=== PATIENT | male | born 1940 | race Caucasian/White ===

== ENCOUNTER 2022-12-25 23:19 | Emergency (ER) | payer MEDICARE, OTHER ==
[~2022-12-25] VITALS: Ht 177.8 cm; Wt 70.8 kg
[2022-12-26 00:42] LABS: BASOPHILS % (AUTO) 0.6 % (0.0-2.0); EOSINOPHILS % (AUTO) 3.8 % (0.0-6.0); HEMATOCRIT 46 % (39-51); HEMOGLOBIN 14.6 g/dL (13.5-17.5); LYMPHOCYTES # (AUTO) 2.2 K/uL (0.8-4.8); LYMPHOCYTES % (AUTO) 34.1 % (20.0-44.0); MEAN CORPUSCULAR HGB CONC 32 g/dl (31.0-36.0); MEAN CORPUSCULAR VOLUME 90 fL (80-96); MONOCYTES # (AUTO) 0.4 K/uL (0.1-1.30); MONOCYTES % (AUTO) 5.5 % (2.0-12.0); NEUTROPHILS # (AUTO) 3.6 K/uL (1.8-8.9); PLATELET COUNT (AUTO) 271 K/uL (150-450); RED BLOOD CELL COUNT(AUTO) 5.05 MIL/uL (4.5-6.0); WHITE BLOOD COUNT (AUTO) 6.4 K/uL (4.3-11.0)
--- NOTE | 2022-12-26 01:01 | NUR ---
[facility] CALLED FOR BLS GOING BACK TO [facility]F PER MICHAEL ETA 90 MIN
[2022-12-26 01:06] LABS: ALANINE AMINOTRANSFERASE 8 U/L (12-78); ALBUMIN 3.6 g/dL (3.4-5.0); ALKALINE PHOSPHATASE 68 U/L (46-116); ASPARTATE AMINOTRANSFERASE 14 U/L (15-37); BILIRUBIN,TOTAL 0.2 mg/dL (0.2-1.0); CALCIUM, SERUM 9.4 mg/dL (8.5-10.1); CARBON DIOXIDE 26 mmol/L (21-32); CHLORIDE 103 mmol/L (98-107); CREATININE 1.2 mg/dL (0.6-1.3); GLUCOSE 119 mg/dL (74-106); POTASSIUM 4.2 mmol/L (3.5-5.1); SODIUM SERUM 137 mmol/L (136-145); TOTAL PROTEIN, SERUM 8.1 g/dL (6.4-8.2); UREA NITROGEN, BLOOD 33 mg/dL (7-18)
--- NOTE | 2022-12-26 01:06 | NUR ---
ATTEMPTED TO GIVE REPORT, PICKED UP BUT NO ANSWER.
--- NOTE | 2022-12-26 02:05 | NUR ---
Patient discharged to home in stable condition. Written and verbal after care instructions given. Patient verbalizes understanding of instruction.
[2022-12-26 02:06] VITALS: BP 124/70
[2022-12-26] MEDS ORDERED: NA P133E RC (10:22)
[2022-12-26] MEDS ORDERED: ASCO100058 PO (10:22)
[2022-12-26] MEDS ORDERED: MELA5TAB PO (10:22)
[2022-12-26] MEDS ORDERED: OLAN2.5T3 PO (10:22)
[2022-12-26] MEDS ORDERED: SCOP1PAT11 TD (10:22)
[2022-12-26] MEDS ORDERED: TYL2T PO (10:22)
[2022-12-26] MEDS ORDERED: BISA10SU11 RC (10:22)
[2022-12-26] MEDS ORDERED: DOCU-141 PO (10:22)
[2022-12-26] MEDS ORDERED: ACET-868 PO (10:22)
[2022-12-26] MEDS ORDERED: MAGN400O6 PO (10:22)
[2022-12-26] MEDS ORDERED: MULT-447 PO (10:22)
== END 2022-12-26 02:06 | disposition home or self-care (01) ==
LOC: ER 23:30
DX: R10.9 Unspecified abdominal pain (principal)
CPT/HCPCS: 36415; 80053-TC; 85025-TC

== ENCOUNTER 2022-12-26 09:18 | Inpatient (IN) | payer MEDICARE, OTHER ==
[~2022-12-26] VITALS: Ht 167.6 cm; Wt 75.7 kg
--- NOTE | 2022-12-26 09:18 | NUR ---
BIBA FOR G-TUBE REMOVAL. A/O X 3, ABLE TO MAKE NEEDS KNOWN. TOLERATING WELL ON ROOM AIR.
--- NOTE | 2022-12-26 09:48 | NUR ---
MOVE SHEET SUBMITTED.
--- NOTE | 2022-12-26 10:04 | NUR ---
COVID SWAB OBTAINED
--- NOTE | 2022-12-26 10:04 | NUR ---
BLOOD SAMPLES OBTAINED
[2022-12-26 10:18] LABS: BASOPHILS # (AUTO) 0.1 K/uL (0.0-0.2); BASOPHILS % (AUTO) 1.5 % (0.0-2.0); EOSINOPHILS % (AUTO) 4.2 % (0.0-6.0); HEMATOCRIT 43 % (39-51); HEMOGLOBIN 14.1 g/dL (13.5-17.5); LYMPHOCYTES # (AUTO) 1.5 K/uL (0.8-4.8); LYMPHOCYTES % (AUTO) 24.1 % (20.0-44.0); MEAN CORPUSCULAR HGB CONC 33 g/dl (31.0-36.0); MEAN CORPUSCULAR VOLUME 89 fL (80-96); MONOCYTES # (AUTO) 0.4 K/uL (0.1-1.30); MONOCYTES % (AUTO) 5.7 % (2.0-12.0); NEUTROPHILS % (AUTO) 64.5 % (43.0-81.0); PLATELET COUNT (AUTO) 258 K/uL (150-450); RED BLOOD CELL COUNT(AUTO) 4.83 MIL/uL (4.5-6.0); WHITE BLOOD COUNT (AUTO) 6.1 K/uL (4.3-11.0)
[2022-12-26] MEDS ORDERED: OLAN2.5T3 PO (10:22)
[2022-12-26] MEDS ORDERED: TYL2T PO (10:22)
[2022-12-26] MEDS ORDERED: NA P133E RC (10:22)
[2022-12-26] MEDS ORDERED: MULT-447 PO (10:22)
[2022-12-26] MEDS ORDERED: ACET-868 PO (10:22)
[2022-12-26] MEDS ORDERED: ASCO100058 PO (10:22)
[2022-12-26] MEDS ORDERED: MELA5TAB PO (10:22)
[2022-12-26] MEDS ORDERED: DOCU-141 PO (10:22)
[2022-12-26] MEDS ORDERED: BISA10SU11 RC (10:22)
[2022-12-26] MEDS ORDERED: SCOP1PAT11 TD (10:22)
[2022-12-26] MEDS ORDERED: MAGN400O6 PO (10:22)
[2022-12-26 10:49] LABS: CALCIUM, SERUM 9.4 mg/dL (8.5-10.1); CARBON DIOXIDE 25 mmol/L (21-32); CHLORIDE 102 mmol/L (98-107); GLUCOSE 91 mg/dL (74-106); POTASSIUM 4.6 mmol/L (3.5-5.1); SODIUM SERUM 136 mmol/L (136-145); UREA NITROGEN, BLOOD 25 mg/dL (7-18)
[2022-12-26 11:00] LABS: ALANINE AMINOTRANSFERASE 12 U/L (12-78); ALBUMIN 3.7 g/dL (3.4-5.0); ALKALINE PHOSPHATASE 68 U/L (46-116); ASPARTATE AMINOTRANSFERASE 34 U/L (15-37); BILIRUBIN,DIRECT 0.1 mg/dL (0.0-0.2); BILIRUBIN,TOTAL 0.5 mg/dL (0.2-1.0); LIPASE 159 U/L (73-393); TOTAL PROTEIN, SERUM 8.5 g/dL (6.4-8.2)
--- NOTE | 2022-12-26 11:14 | NUR ---
[facility] SWAB COLLECTED AND BELONGINGS LOGGED.
--- NOTE | 2022-12-26 11:50 | NUR ---
GOT BED 327-2 ADMITTING INFORMED.
[2022-12-26 12:00] VITALS: BP 130/69
--- NOTE | 2022-12-26 12:09 | NUR ---
Report given to STEPHANIE Lopez.
--- NOTE | 2022-12-26 12:15 | NUR ---
PATIENT TRANSFERRED TO [facility], ALL CARE ENDORSED TO RN JOBY
--- NOTE | 2022-12-26 12:30 | NUR ---
ADMIT PATIENT VIA GURNEY FROM ER, A/O X2-3, BREATHING EVENLY AND UNLABORED ON RA. NO SIGNS OF DISTRESS NOTED, PATIENT DENIES PAIN OR DISCOMFORT AT THIS TIME, PATIENT ORIENTED TO STAFF AND SURROUNDINGS, VITAL SIGNS TAKEN FOLLOWS: T-98.1; BP-130/69; RI-71; RR-16; SPO2-100. SKIN ASSESSMENT; WITH IDENTIFIED 1.5 CM WOUND ON RIGHT POSTERIOR FOREARM. PHOTO TAKEN + WOUND CONSULT REFERRAL. PATIENT HAS IV ACCESS ON LFA G18; INTACT AND PATENT, SAFETY MEASURES IMPLEMENTED: BED IN LOWEST POSITION, WITH SR UP X2 CALL LIGHT WITHIN REACH, WILL CONTINUE TO MONITOR THE PATIENT.
[2022-12-26] MEDS ORDERED: INSULIN REGULAR, HUMAN 100 UNIT/ML 3 ML VIAL SQ PRN (17:30)
[2022-12-26] MEDS ORDERED: DEXTROSE 50%-WATER 50 ML DISP.SYRIN IV PRN (17:30)
[2022-12-26] MEDS ORDERED: ONDANSETRON HCL/PF 4 MG/2 ML VIAL IVP PRN (17:30)
[2022-12-26] MEDS ORDERED: ACETAMINOPHEN 325 MG TABLET PO PRN (17:30)
[2022-12-26] MEDS: DOCUSATE SODIUM 100 MG CAPSULE PO SCH (17:41)
[2022-12-26] MEDS: ENOXAPARIN SODIUM 40 MG/0.4 ML DISP.SYRIN SQ SCH (17:57)
[2022-12-26] MEDS: BLOOD SUGAR DIAGNOSTIC 1 EACH STRIP IN SCH ×2 (18:22→22:56)
--- NOTE | 2022-12-26 19:04 | NUR ---
MS RN CLOSING NOTE PATIENT IN BED, A/O X 2-3, STABLE ON ROOM AIR TOLERATING WELL, BREATHING EVENLY AND NO DISTRESS NOTED; WITH SURGICAL DRESSING IN THE ABDOMEN S/P G-TUBE REPLACEMENT, CLEAN, DRY AND INTACT; WITH IV ACCESS ON LAC G#18 PATENT AND INTACT; ALL CARE PROVIDED AND MEDS TOLERATED WELL. SAFETY MEASURES MAINTAINED, BED IN LOW AND LOCKED POSITION, SIDE RAILS UP X 2, CALL LIGHT WITHIN REACH; PATIENT WILL BE ENDORSED TO ONCOMING MED DIR NURSE FOR RUTH.
--- NOTE | 2022-12-26 19:50 | NUR ---
MS RN OPENING NOTES RECEIVED PATIENT SITTING ON THE BED WATCHING TV. A/O X 2-3. NO S/S OF PAIN NOTED AT THIS TIME. ON ROOM AIR, BREATHING EVEN AND UNLABORED, NO DISTRESS OF SOB NOTED. IV ACCESS LFA #18G INTACT, PATENT AND FLUSHING WELL. PATIENT IS AMBULATORY WITH ASSIST. WITH SURGICAL DRESSING IN THE ABDOMEN S/P J-TUBE REPLACEMENT, DRY AND INTACT. SAFETY MEASURES IN PLACE WITH BED IN LOWEST LOCKED POSITION. BED ALARM ON. SIDE RAILS UP X 2. WILL CONTINUE WITH THE PLAN OF CARE AND CARRY OUT ACTIVE MD ORDERS.
[2022-12-26 20:00] VITALS: BP 114/74
--- NOTE | 2022-12-26 21:30 | NUR ---
RN NOTES-BEDSIDE SWALLOW EVAL PATIENT WAS ABLE TO TOLERATE APPLE SAUCE AND VANILLA PUDDING. WILL ORDER PUREED DIET.
--- NOTE | 2022-12-27 07:25 | NUR ---
MS RN CLOSING NOTES PATIENT LYING IN BED SLEEPING. EASILY AWAKEN BY VERBAL STIMULI. A/O X 2-3. NO S/S OF PAIN NOTED AT THIS TIME. ON ROOM AIR, BREATHING EVEN AND UNLABORED, NO DISTRESS OF SOB NOTED. IV ACCESS LEFT HAND #22G INTACT, PATENT AND FLUSHING WELL. PATIENT IS AMBULATORY WITH ASSIST. WITH SURGICAL DRESSING IN THE ABDOMEN S/P J-TUBE REPLACEMENT, DRY AND INTACT. SAFETY MEASURES IN PLACE WITH BED IN LOWEST LOCKED POSITION. BED ALARM ON. SIDE RAILS UP X 2. WILL ENDORSE TO THE NEXT SHIFT.
--- NOTE | 2022-12-27 07:30 | NUR ---
MS RN OPENING NOTES RECEIVED PATIENT LYING IN BED SLEEPING BUT EASILY AWAKEN BY VERBAL STIMULI. A/O X 2-3. NO S/S OF PAIN NOTED AT THIS TIME. ON ROOM AIR, BREATHING EVENLY AND UNLABORED, NO DISTRESS OF SOB NOTED. IV ACCESS LEFT HAND #22G INTACT, PATENT AND FLUSHING WELL. PATIENT IS AMBULATORY WITH ASSIST. WITH SURGICAL DRESSING IN THE ABDOMEN S/P J-TUBE REPLACEMENT, DRY AND INTACT. SAFETY MEASURES IN PLACE WITH BED IN LOWEST LOCKED POSITION. BED ALARM ON. SIDE RAILS UP X 2. WILL CONTINUE TO MONITOR THE PATIENT FOR RUTH.
[2022-12-27] MEDS: BLOOD SUGAR DIAGNOSTIC 1 EACH STRIP IN SCH ×4 (07:57→21:47)
[2022-12-27 08:00] VITALS: BP 103/46
[2022-12-27 08:07] LABS: CALCIUM, SERUM 9.1 mg/dL (8.5-10.1); MAGNESIUM 2.1 mg/dL (1.8-2.4); PHOSPHORUS 3.2 mg/dL (2.5-4.9); POTASSIUM 4.5 mmol/L (3.5-5.1)
[2022-12-27] MEDS: DOCUSATE SODIUM 100 MG CAPSULE PO SCH ×2 (09:00→16:13)
[2022-12-27] MEDS: OLANZAPINE 2.5 MG TABLET PO SCH (09:00)
[2022-12-27] MEDS: MULTIVIT W/MINERALS 1 TAB TABLET PO SCH (09:00)
[2022-12-27] MEDS: ASCORBIC ACID 500 MG TABLET PO SCH (09:00)
[2022-12-27 09:34] LABS: BASOPHILS % (AUTO) 0.5 % (0.0-2.0); EOSINOPHILS % (AUTO) 4.6 % (0.0-6.0); HEMATOCRIT 44 % (39-51); HEMOGLOBIN 14.3 g/dL (13.5-17.5); LYMPHOCYTES # (AUTO) 1.9 K/uL (0.8-4.8); LYMPHOCYTES % (AUTO) 41.8 % (20.0-44.0); MEAN CORPUSCULAR HGB CONC 33 g/dl (31.0-36.0); MEAN CORPUSCULAR VOLUME 89 fL (80-96); MONOCYTES # (AUTO) 0.3 K/uL (0.1-1.30); MONOCYTES % (AUTO) 7.3 % (2.0-12.0); NEUTROPHILS # (AUTO) 2.1 K/uL (1.8-8.9); NEUTROPHILS % (AUTO) 45.8 % (43.0-81.0); PLATELET COUNT (AUTO) 253 K/uL (150-450); WHITE BLOOD COUNT (AUTO) 4.6 K/uL (4.3-11.0)
[2022-12-27 16:00] VITALS: BP 98/62
[2022-12-27] MEDS: ENOXAPARIN SODIUM 40 MG/0.4 ML DISP.SYRIN SQ SCH (16:43)
--- NOTE | 2022-12-27 18:41 | NUR ---
MS RN CLOSING NOTE PATIENT IN BED, A/O X3, STABLE ON ROOM AIR TOLERATING WELL, BREATHING EVENLY AND UNLABORED, NO DISTRESS NOTED, WITH SURGICAL DRESSING IN THE ABDOMEN, REPLACED TODAY, S/P G-TUBE REPLACEMENT, C/D/I. WITH IV ACCESS ON LEFT HAND G#22 PATENT AND INTACT. ALL MEDS GIVEN AND CARE PROVIDED DURING SHIFT. SAFETY MEASURES MAINTAINED, BED IN LOW AND LOCKED POSITION, SIDE RAILS UP X 2, CALL LIGHT WITHIN REACH. PATIENT WILL BE ENDORSED TO ONCOMING PM SHIFT NURSE FOR RUTH.
--- NOTE | 2022-12-27 20:30 | NUR ---
MS RN OPENING NOTES RECEIVED PATIENT SITTING ON THE BED WATCHING TV. A/O X 3 NO S/S OF PAIN NOTED AT THIS TIME. ON ROOM AIR, BREATHING EVEN AND UNLABORED, NO DISTRESS OF SOB NOTED. IV ACCESS LEFT HAND #22G INTACT, PATENT AND FLUSHING WELL. PATIENT IS AMBULATORY WITH ASSIST. WITH SURGICAL DRESSING IN THE ABDOMEN S/P J-TUBE REMOVAL, DRY AND INTACT. SAFETY MEASURES IN PLACE WITH BED IN LOWEST LOCKED POSITION. BED ALARM ON.KEPT PATIENT WARM AND COMFORTABLE, KEPT CALL LIGHT WITHIN AT REACH. ON ASPIRATION PRECAUTION. SIDE RAILS UP X 2. WILL CONTINUE WITH THE PLAN OF CARE AND CARRY OUT ACTIVE MD ORDERS.
--- NOTE | 2022-12-28 01:30 | NUR ---
RN NOTES RE-TAKING PICTURES OF THE WOUND IN RIGHT FOREARM DONE AND RECORDED.
--- NOTE | 2022-12-28 06:35 | NUR ---
RN MS CLOSING NOTES PATIENT IN BED, A/O X 4 ON MODERATE HIGH BACK REST POSITION. ON ROOM AIR SATURATING WELL. NO PAIN OR DISCOMFORT NOTED AT THIS TIME. WITH IV ACCESS AT LEFT HAND #22G SL PATENT AND INTACT. SURGICAL DRESSING DONE AND KEPT CLEAN AND DRY. ALL DUE MEDICATION GIVEN. ON PUREED DIET, ON ASPIRATION PRECAUTIONS NOTED,KEPT BED ON LOWER LOCKED POSITION KEPT SIDE RAILS UP X 2ALL THE TIME. KEPT CALL LIGHT WITHIN AT REACH. KEPT PATIENT WARM AND COMFORTABLE. WILL CONTINUE TO MONITOR.
[2022-12-28] MEDS: BLOOD SUGAR DIAGNOSTIC 1 EACH STRIP IN SCH ×4 (06:36→22:02)
[2022-12-28 07:00] VITALS: BP 105/53
--- NOTE | 2022-12-28 07:00 | NUR ---
MS RN OPENING NOTES: RECEIVED PT IN BED AWAKE, ALERT AND ORIENTED 3. NO SOB OR CARDIAC DISTRESS NOTED. ON ROOM AIR AND TOLERATING WELL. IV ACCESS ON LEFT HAND GAUGE 22 PATENT, INTACT AND SALINE LOCKED. DRESSING ON ABDOMEN, INTACT AND NO UNUSUAL DISCHARGE NOTED. SAFETY MEASURES MAINTAINED: BED LOCKED AND IN LOWEST POSITION. SIDERAILS UP X 2. CALL LIGHT IN EASY REACH FOR HELP. WILL MONITOR PT ACCORDINGLY.
[2022-12-28] MEDS: MULTIVIT W/MINERALS 1 TAB TABLET PO SCH (08:22)
[2022-12-28] MEDS: ASCORBIC ACID 500 MG TABLET PO SCH (08:22)
[2022-12-28] MEDS: DOCUSATE SODIUM 100 MG CAPSULE PO SCH ×2 (08:22→16:35)
[2022-12-28] MEDS: OLANZAPINE 2.5 MG TABLET PO SCH (08:22)
[2022-12-28 10:47] LABS: BASOPHILS % (AUTO) 0.8 % (0.0-2.0); EOSINOPHILS % (AUTO) 4.3 % (0.0-6.0); HEMATOCRIT 42 % (39-51); HEMOGLOBIN 13.6 g/dL (13.5-17.5); LYMPHOCYTES # (AUTO) 1.7 K/uL (0.8-4.8); LYMPHOCYTES % (AUTO) 31.5 % (20.0-44.0); MEAN CORPUSCULAR HGB CONC 33 g/dl (31.0-36.0); MEAN CORPUSCULAR VOLUME 89 fL (80-96); MONOCYTES # (AUTO) 0.4 K/uL (0.1-1.30); MONOCYTES % (AUTO) 7.6 % (2.0-12.0); NEUTROPHILS % (AUTO) 55.8 % (43.0-81.0); PLATELET COUNT (AUTO) 259 K/uL (150-450); RED BLOOD CELL COUNT(AUTO) 4.67 MIL/uL (4.5-6.0); WHITE BLOOD COUNT (AUTO) 5.4 K/uL (4.3-11.0)
[2022-12-28 10:51] LABS: CREATININE 1.1 mg/dL (0.6-1.3); POTASSIUM 4.3 mmol/L (3.5-5.1)
[2022-12-28 16:00] VITALS: BP 125/63
[2022-12-28] MEDS: ENOXAPARIN SODIUM 40 MG/0.4 ML DISP.SYRIN SQ SCH (16:58)
--- NOTE | 2022-12-28 18:55 | NUR ---
MS RN CLOSING NOTES: PT IN BED AWAKE, ALERT AND ORIENTED 3. NO SOB OR CARDIAC DISTRESS NOTED. ON ROOM AIR AND TOLERATING WELL. IV ACCESS ON LEFT HAND GAUGE 22 PATENT, INTACT AND SALINE LOCKED. DRESSING ON ABDOMEN, INTACT AND NO UNUSUAL DISCHARGE NOTED. SAFETY MEASURES MAINTAINED: BED LOCKED AND IN LOWEST POSITION. SIDERAILS UP X 2. CALL LIGHT IN EASY REACH FOR HELP. WILL MONITOR PT ACCORDINGLY.
--- NOTE | 2022-12-28 19:38 | NUR ---
MS RN OPENING NOTES: RECEIVED PT IN BED AWAKED AOX3.ABLE TO MAKE NEEDS KNOWN,ON RM AIR VAZQUEZ WELL,SAT 99% NO SOB/DISTRESS NOTED,NO COMPLAIN OF PAIN/DISCOMFORT AT THIS TIME,IV ACCESS ON LEFT HAND GAUGE 22 PATENT, INTACT AND SALINE LOCKED. DRESSING ON ABDOMEN, INTACT AND NO UNUSUAL DISCHARGE NOTED. SAFETY MEASURES MAINTAINED: BED LOCKED AND IN LOWEST POSITION. SIDE RAILS UP X 2. CALL LIGHT WITHIN REACH,WILL CONTINUE TO MONITOR.
[2022-12-29] MEDS: BLOOD SUGAR DIAGNOSTIC 1 EACH STRIP IN SCH ×2 (06:04→12:25)
[2022-12-29 07:38] VITALS: BP 103/44
--- NOTE | 2022-12-29 07:47 | NUR ---
RN OPENING NOTE PATIENT AWAKE IN BED RESTING, A/O X 3. NO S/S OF PAIN NOTED AT THIS TIME. ON ROOM AIR, BREATHING EVEN UNLABORED, NO DISTRESS OR SHORTNESS OF BREATH NOTED. IV ACCESS L HAND #22G INTACT, PATENT AND FLUSHING WELL. FALL AND SAFETY MEASURES IN PLACE, BED ALARM ON, BED IN LOW AND LOCK POSITION, CALL LIGHT AND TABLE WITHIN EASY REACH, SIDE RAILS UP X2. WILL CONTINUE TO MONITOR.
[2022-12-29] MEDS: MULTIVIT W/MINERALS 1 TAB TABLET PO SCH (08:54)
[2022-12-29] MEDS: DOCUSATE SODIUM 100 MG CAPSULE PO SCH (08:55)
[2022-12-29] MEDS: ASCORBIC ACID 500 MG TABLET PO SCH (08:55)
[2022-12-29] MEDS: OLANZAPINE 2.5 MG TABLET PO SCH (08:55)
--- NOTE | 2022-12-29 09:33 | NUR ---
WOUND CARE CONSULT: PT PRESENTS WITH LARGE AREA OF SCARRING WITH DRY SCAB, PRESENT ON ADMISSION. RECOMMENDATIONS MADE FOR SKIN PROTECTION. DISCUSSED WITH NURSING STAFF. PT IS AMBULATORY. MD IN AGREEMENT WITH PLAN OF CARE.
--- NOTE | 2022-12-29 13:30 | NUR ---
WOOD CARVING LATHE OPERATOR NOTE PATIENT DISCHARGE IN STABLE MEDICAL CONDITION. A/O X2-3, CONFUSED AT TIME. V/S TAKEN, STABLE AND RECORDED. NO IV ACCESS. NAME ARM BAND REMOVED. SKIN ASSESSMENT DONE, PICTURES TAKEN AND WOUND CARE IMPLEMENTED BEFORE D/C/. ALL BELONGINGS CHECKED AND BELONGING LIST SIGNED. HEALTH TEACHING AND DISCHARGE INSTRUCTIONS GIVEN TO PATIENT & NURSE AT FACILITY AND VERBALIZED UNDERSTANDING. INSTRUCTED TO FOLLOW UP WITH DOCTORS. DISCUSSED PRESCRIPTIONS WITH PATIENT AND NURSE AT FACILITY. INSTRUCTED PATIENT IN CASE OF EMERGENCY TO CALL 911 OR GO TO THE NEAREST ER. PATIENT LEFT UNIT VIA GURNEY WITH NO SIGNS OF DISTRESS, ACCOMPANIED BY MUSEUM OR ZOO DIRECTOR. PATIENT WENT TO [facility] AND REPORT WAS GIVEN TO DEVANG [phone]. CHARGE NURSE AWARE OF DISCHARGED.
== END 2022-12-29 13:20 | DRG 919 ==
LOC: ER 09:22 → MED 12:02
PROVIDERS: ADMIT Nurse Practitioner Acute Care; ATTEND Nurse Practitioner Acute Care
DX: T85.848A Pain due to other internal prosthetic devices, implants and grafts, initial encounter (principal); N17.0 Acute kidney failure with tubular necrosis; E11.9 Type 2 diabetes mellitus without complications; Z20.822 Contact with and (suspected) exposure to COVID-19; Z86.39 Personal history of other endocrine, nutritional and metabolic disease; Z79.899 Other long term (current) drug therapy; F29 Unspecified psychosis not due to a substance or known physiological condition; Y84.8 Other medical procedures as the cause of abnormal reaction of the patient, or of later complication, without mention of misadventure at the time of the procedure; Y92.129 Unspecified place in nursing home as the place of occurrence of the external cause
CPT/HCPCS: 36415; 80048-TC; 80053-TC; 80061-TC; 80076-TC; 82962-TC; 83690-TC; 83735-TC; 84100-TC; 85025-TC; 87081-TC; 97112-TC; 97116-TC; 97530-TC; C9803; G0378; J1650; J1815; J7030

== ENCOUNTER 2023-08-13 17:24 | Inpatient (IN) | payer MEDICARE, OTHER ==
[~2023-08-13] VITALS: Ht 170.2 cm; Wt 77.1 kg
[~2023-08-13 17:24] MED LIST: ACET-868 PO; ASCO100058 PO; BISA10SU11 RC; DOCU-141 PO; MAGN400O6 PO; MELA5TAB PO; MULT-447 PO; NA P133E RC; OLAN2.5T3 PO; SCOP1PAT11 TD; TYL2T PO
[2023-08-13] MEDS ORDERED: FAMOTIDINE/PF INJ 20 MG/2 ML VIAL IV ONE ×2 (18:00→19:03)
[2023-08-13] MEDS ORDERED: ACETAMINOPHEN ES 500 MG TABLET PO ONE (18:00)
[2023-08-13] MEDS ORDERED: INSU100V11 SQ (18:10)
[2023-08-13 18:30] LABS: APPEARANCE,URINE SLIGHTLY CLOUDY (CLEAR); BILIRUBIN,URINE NEGATIVE (NEGATIVE); BLOOD, URINE NEGATIVE Ery/uL (NEGATIVE); COLOR,URINE YELLOW (YELLOW); KETONES,URINE TRACE mg/dL (NEGATIVE); LEUKOCYTE ESTERASE ,URINE NEGATIVE (NEGATIVE); NITRITE, URINE NEGATIVE (NEGATIVE); PROTEIN,URINE NEGATIVE (NEGATIVE); UGLUCOSE NEGATIVE (NEGATIVE); UROBILINOGEN,URINE 0.2 EU/dL (0.2)
[2023-08-13] MEDS ORDERED: ACETAMINOPHEN 325 MG TABLET PO PRN (18:30)
[2023-08-13] MEDS ORDERED: MAG HYDROX/AL HYDROX/SIMETH 30 ML UDC PO PRN (18:30)
[2023-08-13] MEDS ORDERED: ONDANSETRON HCL/PF 4 MG/2 ML VIAL IVP PRN (18:30)
[2023-08-13] MEDS ORDERED: Z GUARD REMEDY 4 OZ OINT TP PRN (18:30)
[2023-08-13] MEDS ORDERED: MAGNESIUM HYDROXIDE 30 ML UDC PO PRN (18:30)
[2023-08-13] MEDS ORDERED: IV NS 0.9% 1,000 ML IV PRN (18:30)
[2023-08-13 18:39] VITALS: O2SAT 100
[2023-08-13] MEDS ORDERED: ACETAMINOPHEN ES 500 MG TABLET ONE (19:03)
[2023-08-13 19:06] LABS: BASOPHILS # (AUTO) 0.1 K/uL (0.0-0.2); BASOPHILS % (AUTO) 0.8 % (0.0-2.0); EOSINOPHILS # (AUTO) 0.3 K/uL (0.0-0.7); EOSINOPHILS % (AUTO) 3.3 % (0.0-6.0); HEMATOCRIT 45 % (39-51); HEMOGLOBIN 14.8 g/dL (13.5-17.5); LYMPHOCYTES # (AUTO) 1.9 K/uL (0.8-4.8); MEAN CORPUSCULAR HEMOGLOBIN 29 PG (26.0-33.0); MEAN CORPUSCULAR HGB CONC 33 g/dl (31.0-36.0); MEAN CORPUSCULAR VOLUME 88 fL (80-96); MONOCYTES # (AUTO) 0.4 K/uL (0.1-1.30); MONOCYTES % (AUTO) 4.9 % (2.0-12.0); PLATELET COUNT (AUTO) 298 K/uL (150-450); RED BLOOD CELL COUNT(AUTO) 5.13 MIL/uL (4.5-6.0); RED CELL DISTRIBUTION WIDTH 15.7 % (11.5-15.0); WHITE BLOOD COUNT (AUTO) 8.7 K/uL (4.3-11.0)
[2023-08-13 19:09] LABS: ADD URINE CULTURE NO; BACTERIA,URINE None seen /HPF (None Seen); RBC,URINE 0-2 /HPF (0-2); SQUAMOUS EPITHELIAL CELL,UR 0-2 /HPF (None Seen); URINE AMORPHOUS PHOSPHATES Moderate /HPF (None Seen); WBC,URINE 0-2 /HPF (0-3)
[2023-08-13 19:22] LABS: ALANINE AMINOTRANSFERASE 17 U/L (12-78); ALBUMIN 3.8 g/dL (3.4-5.0); ALKALINE PHOSPHATASE 83 U/L (46-116); ASPARTATE AMINOTRANSFERASE 37 U/L (15-37); BILIRUBIN,TOTAL 0.4 mg/dL (0.2-1.0); CALCIUM, SERUM 9.6 mg/dL (8.5-10.1); CARBON DIOXIDE 26 mmol/L (21-32); CHLORIDE 99 mmol/L (98-107); CREATININE 1.1 mg/dL (0.6-1.3); GLUCOSE 88 mg/dL (74-106); LIPASE 66 U/L (16-77); POTASSIUM 5.3 mmol/L (3.5-5.1); SODIUM SERUM 134 mmol/L (136-145); TOTAL PROTEIN, SERUM 9.7 g/dL (6.4-8.2); UREA NITROGEN, BLOOD 23 mg/dL (7-18)
[2023-08-13 23:05] VITALS: BP 141/83; TEMP 97.7; O2SAT 97
[2023-08-14 06:16] LABS: BASOPHILS % (AUTO) 0.7 % (0.0-2.0); EOSINOPHILS # (AUTO) 0.3 K/uL (0.0-0.7); EOSINOPHILS % (AUTO) 3.7 % (0.0-6.0); HEMATOCRIT 43 % (39-51); HEMOGLOBIN 13.8 g/dL (13.5-17.5); LYMPHOCYTES # (AUTO) 1.7 K/uL (0.8-4.8); MEAN CORPUSCULAR HEMOGLOBIN 29 PG (26.0-33.0); MEAN CORPUSCULAR HGB CONC 32 g/dl (31.0-36.0); MEAN CORPUSCULAR VOLUME 90 fL (80-96); MONOCYTES # (AUTO) 0.7 K/uL (0.1-1.30); MONOCYTES % (AUTO) 10.1 % (2.0-12.0); NEUTROPHILS # (AUTO) 4.1 K/uL (1.8-8.9); NEUTROPHILS % (AUTO) 60.5 % (43.0-81.0); PLATELET COUNT (AUTO) 213 K/uL (150-450); RED BLOOD CELL COUNT(AUTO) 4.81 MIL/uL (4.5-6.0); RED CELL DISTRIBUTION WIDTH 15.4 % (11.5-15.0); WHITE BLOOD COUNT (AUTO) 6.7 K/uL (4.3-11.0)
[2023-08-14 06:56] LABS: CALCIUM, SERUM 8.4 mg/dL (8.5-10.1); CARBON DIOXIDE 21 mmol/L (21-32); CHLORIDE 103 mmol/L (98-107); CREATININE 0.8 mg/dL (0.6-1.3); GLUCOSE 89 mg/dL (74-106); MAGNESIUM 2.4 mg/dL (1.8-2.4); PHOSPHORUS 2.9 mg/dL (2.5-4.9); POTASSIUM 4.3 mmol/L (3.5-5.1); SODIUM SERUM 133 mmol/L (136-145); UREA NITROGEN, BLOOD 19 mg/dL (7-18)
[2023-08-14 16:00] VITALS: BP 130/73; TEMP 97.1; O2SAT 99
[2023-08-14 20:00] VITALS: BP 112/49; TEMP 97.7; O2SAT 97
[2023-08-15 06:06] LABS: BASOPHILS % (AUTO) 0.6 % (0.0-2.0); EOSINOPHILS # (AUTO) 0.2 K/uL (0.0-0.7); EOSINOPHILS % (AUTO) 3.6 % (0.0-6.0); HEMATOCRIT 41 % (39-51); HEMOGLOBIN 13.5 g/dL (13.5-17.5); LYMPHOCYTES # (AUTO) 1.7 K/uL (0.8-4.8); LYMPHOCYTES % (AUTO) 29.8 % (20.0-44.0); MEAN CORPUSCULAR HEMOGLOBIN 29 PG (26.0-33.0); MEAN CORPUSCULAR HGB CONC 33 g/dl (31.0-36.0); MEAN CORPUSCULAR VOLUME 88 fL (80-96); MONOCYTES # (AUTO) 0.5 K/uL (0.1-1.30); MONOCYTES % (AUTO) 9.3 % (2.0-12.0); NEUTROPHILS # (AUTO) 3.3 K/uL (1.8-8.9); NEUTROPHILS % (AUTO) 56.7 % (43.0-81.0); PLATELET COUNT (AUTO) 251 K/uL (150-450); RED BLOOD CELL COUNT(AUTO) 4.68 MIL/uL (4.5-6.0); RED CELL DISTRIBUTION WIDTH 15.2 % (11.5-15.0); WHITE BLOOD COUNT (AUTO) 5.8 K/uL (4.3-11.0)
[2023-08-15 06:31] LABS: ALANINE AMINOTRANSFERASE 13 U/L (12-78); ALKALINE PHOSPHATASE 69 U/L (46-116); ASPARTATE AMINOTRANSFERASE 11 U/L (15-37); BILIRUBIN,DIRECT 0.2 mg/dL (0.0-0.2); BILIRUBIN,TOTAL 0.7 mg/dL (0.2-1.0); CARBON DIOXIDE 25 mmol/L (21-32); CHLORIDE 103 mmol/L (98-107); CREATININE 0.9 mg/dL (0.6-1.3); GLUCOSE 91 mg/dL (74-106); POTASSIUM 4.1 mmol/L (3.5-5.1); SODIUM SERUM 135 mmol/L (136-145); TOTAL PROTEIN, SERUM 7.7 g/dL (6.4-8.2); UREA NITROGEN, BLOOD 22 mg/dL (7-18)
[2023-08-15 07:00] VITALS: BP 106/64; TEMP 97.9; O2SAT 97
[2023-08-15 16:00] VITALS: BP 116/86; TEMP 97.7; O2SAT 99
[2023-08-15 20:00] VITALS: BP 147/112; TEMP 98.7; O2SAT 98
[2023-08-16 07:00] VITALS: BP 112/73; TEMP 97.7; O2SAT 98
[2023-08-16 08:42] VITALS: BP 112/73; TEMP 97.7; O2SAT 98
== END 2023-08-16 13:40 | DRG 445 ==
LOC: ER 17:26 → MED 22:37
PROVIDERS: ADMIT Internal Medicine; ATTEND Internal Medicine
DX: K80.20 Calculus of gallbladder without cholecystitis without obstruction (principal); E87.1 Hypo-osmolality and hyponatremia; F03.93 Unspecified dementia, unspecified severity, with mood disturbance; E11.9 Type 2 diabetes mellitus without complications; E87.5 Hyperkalemia; F20.9 Schizophrenia, unspecified; Z79.4 Long term (current) use of insulin; F29 Unspecified psychosis not due to a substance or known physiological condition; R82.4 Acetonuria
CPT/HCPCS: 36415; 71045-TC; 80048-TC; 80076-TC; 81001; 83690-TC; 83735-TC; 84100-TC; 85025-TC; A4223; G0378; J3490; J7030

== ENCOUNTER 2024-06-08 19:09 | Inpatient (IN) | payer MEDICARE, OTHER ==
[~2024-06-08] VITALS: Ht 170.2 cm; Wt 77.6 kg
[~2024-06-08 19:09] MED LIST changes: +INSU100V11 SQ; +IPRA3AMP23 IH
[2024-06-08 20:49] LABS: BASOPHILS # (AUTO) 0.1 K/uL (0.0-0.2); BASOPHILS % (AUTO) 0.4 % (0.0-2.0); EOSINOPHILS % (AUTO) 0.1 % (0.0-6.0); HEMATOCRIT 44 % (39-51); HEMOGLOBIN 14.2 g/dL (13.5-17.5); LYMPHOCYTES # (AUTO) 0.9 K/uL (0.8-4.8); LYMPHOCYTES % (AUTO) 5.2 % (20.0-44.0); MEAN CORPUSCULAR HEMOGLOBIN 29 PG (26.0-33.0); MEAN CORPUSCULAR HGB CONC 32 g/dl (31.0-36.0); MEAN CORPUSCULAR VOLUME 90 fL (80-96); MONOCYTES # (AUTO) 0.6 K/uL (0.1-1.30); MONOCYTES % (AUTO) 3.3 % (2.0-12.0); NEUTROPHILS # (AUTO) 15.7 K/uL (1.8-8.9); RED BLOOD CELL COUNT(AUTO) 4.93 MIL/uL (4.5-6.0); RED CELL DISTRIBUTION WIDTH 14.8 % (11.5-15.0); WHITE BLOOD COUNT (AUTO) 17.3 K/uL (4.3-11.0)
[2024-06-08 21:02] LABS: PLATELET COUNT (AUTO) 227 K/uL (150-450)
[2024-06-08 21:03] LABS: INR 1.06 (0.91-1.10); PARTIAL THROMBOPLASTIN TIME 23.4 SEC (24.3-34.3); PROTHROMBIN TIME 11.2 SECS (9.2-11.1)
[2024-06-08 21:07] LABS: CALCIUM, SERUM 9.5 mg/dL (8.5-10.1); CARBON DIOXIDE 27 mmol/L (21-32); CHLORIDE 103 mmol/L (98-107); CREATININE 1.2 mg/dL (0.6-1.3); GLUCOSE 171 mg/dL (74-106); POTASSIUM 4.7 mmol/L (3.5-5.1); SODIUM SERUM 137 mmol/L (136-145); UREA NITROGEN, BLOOD 29 mg/dL (7-18)
[2024-06-08 21:19] LABS: ALANINE AMINOTRANSFERASE 12 U/L (12-78); ALBUMIN 3.3 g/dL (3.4-5.0); ALKALINE PHOSPHATASE 76 U/L (46-116); ASPARTATE AMINOTRANSFERASE 16 U/L (15-37); BILIRUBIN,DIRECT 0.2 mg/dL (0.0-0.2); BILIRUBIN,TOTAL 0.9 mg/dL (0.2-1.0); NT-PRO BNP 1933 pg/mL (0-125); TOTAL PROTEIN, SERUM 8.9 g/dL (6.4-8.2)
[2024-06-08] MEDS: LEVOFLOXACIN 750 MG /D5W 150ML 150 ML IV ONE (21:30)
[2024-06-08] MEDS ORDERED: LEVOFLOXACIN 750 MG /D5W 150ML 150 ML IV ONE (21:32)
[2024-06-08] MEDS ORDERED: NITROGLYCERIN 0.4 MG/TAB BOTTLE SL PRN (22:30)
[2024-06-08] MEDS ORDERED: Z GUARD REMEDY 4 OZ OINT TP PRN (22:30)
[2024-06-08] MEDS ORDERED: ALBUTEROL FS 2.5 MG/3 ML VIAL.NEB NEB PRN (22:30)
[2024-06-08] MEDS ORDERED: MAGNESIUM HYDROXIDE 30 ML UDC PO PRN (22:30)
[2024-06-08] MEDS ORDERED: MAG HYDROX/AL HYDROX/SIMETH 30 ML UDC PO PRN (22:30)
[2024-06-08] MEDS ORDERED: ACETAMINOPHEN 325 MG TABLET PO PRN (22:30)
[2024-06-08] MEDS ORDERED: ZOLPIDEM TARTRATE 5 MG TABLET PO PRN (22:30)
[2024-06-08 23:56] VITALS: BP 121/96; TEMP 98.2; O2SAT 97
[2024-06-09] MEDS: FUROSEMIDE 20 MG/2 ML VIAL IV SCH (00:27)
[2024-06-09 04:01] VITALS: BP 104/82; TEMP 97.9; O2SAT 99
[2024-06-09 04:18] VITALS: BP 104/82; TEMP 97.9; O2SAT 99
[2024-06-09 06:55] LABS: BASOPHILS % (AUTO) 0.3 % (0.0-2.0); EOSINOPHILS # (AUTO) 0.2 K/uL (0.0-0.7); EOSINOPHILS % (AUTO) 1.2 % (0.0-6.0); HEMATOCRIT 41 % (39-51); HEMOGLOBIN 13.3 g/dL (13.5-17.5); LYMPHOCYTES # (AUTO) 1.8 K/uL (0.8-4.8); LYMPHOCYTES % (AUTO) 13.2 % (20.0-44.0); MEAN CORPUSCULAR HEMOGLOBIN 29 PG (26.0-33.0); MEAN CORPUSCULAR HGB CONC 33 g/dl (31.0-36.0); MEAN CORPUSCULAR VOLUME 89 fL (80-96); MONOCYTES # (AUTO) 0.8 K/uL (0.1-1.30); MONOCYTES % (AUTO) 5.6 % (2.0-12.0); NEUTROPHILS # (AUTO) 10.9 K/uL (1.8-8.9); NEUTROPHILS % (AUTO) 79.7 % (43.0-81.0); PLATELET COUNT (AUTO) 215 K/uL (150-450); RED BLOOD CELL COUNT(AUTO) 4.55 MIL/uL (4.5-6.0); RED CELL DISTRIBUTION WIDTH 14.4 % (11.5-15.0); WHITE BLOOD COUNT (AUTO) 13.6 K/uL (4.3-11.0)
[2024-06-09 07:08] LABS: ALANINE AMINOTRANSFERASE 11 U/L (12-78); ALBUMIN 2.8 g/dL (3.4-5.0); ALKALINE PHOSPHATASE 74 U/L (46-116); ASPARTATE AMINOTRANSFERASE 15 U/L (15-37); BILIRUBIN,DIRECT 0.2 mg/dL (0.0-0.2); BILIRUBIN,TOTAL 0.9 mg/dL (0.2-1.0); CALCIUM, SERUM 8.7 mg/dL (8.5-10.1); CARBON DIOXIDE 28 mmol/L (21-32); CHLORIDE 105 mmol/L (98-107); CREATININE 1.1 mg/dL (0.6-1.3); GLUCOSE 93 mg/dL (74-106); MAGNESIUM 2.2 mg/dL (1.8-2.4); NT-PRO BNP 1326 pg/mL (0-125); PHOSPHORUS 2.8 mg/dL (2.5-4.9); POTASSIUM 3.9 mmol/L (3.5-5.1); SODIUM SERUM 140 mmol/L (136-145); TOTAL PROTEIN, SERUM 7.7 g/dL (6.4-8.2); UREA NITROGEN, BLOOD 26 mg/dL (7-18)
[2024-06-09] MEDS: PANTOPRAZOLE 40 MG TABLET.DR PO SCH (07:36)
[2024-06-09] MEDS ORDERED: ASCO500T10 PO (07:50)
[2024-06-09] MEDS ORDERED: METH4TAB3 PO (07:51)
[2024-06-09] MEDS: ASPIRIN 81 MG TAB.CHEW PO SCH (08:26)
[2024-06-09 09:06] VITALS: BP 108/58; TEMP 97.9; O2SAT 96
[2024-06-09] MEDS: MINERAL OIL/PETROL OINT 396 GM JAR TP SCH (11:44)
[2024-06-09 12:20] VITALS: BP 102/54; TEMP 98.3; O2SAT 100
[2024-06-09] MEDS: VANCOMYCIN 1.5 GM in IV D5W 500 ML IV ONE (14:21)
[2024-06-09] MEDS ORDERED: Medication Not On Formulary EA (Ipratropium/Albuterol Sulfate (Duoneb 2.5-0.5 Mg/3 Ml So IH PRN (14:30)
[2024-06-09] MEDS ORDERED: ALBUTEROL FS 2.5 MG/0.5 ML VIAL.NEB NEB PRN (15:30)
[2024-06-09] MEDS ORDERED: IPRATROPIUM NEB FS 0.5 MG/2.5 ML AMPUL.NEB IH PRN (15:30)
[2024-06-09 16:34] VITALS: BP 116/55; TEMP 98.3; O2SAT 99
[2024-06-09] MEDS: CEFEPIME 2 GM in IV D5W 100 ML IV SCH (17:56)
[2024-06-09 20:00] VITALS: BP 123/68; TEMP 98.2; O2SAT 98
[2024-06-10] VITALS: BP 108/54; TEMP 98; O2SAT 96; O2SAT 98
[2024-06-10] MEDS: VANCOMYCIN 750 MG in IV D5W 250 ML IV SCH (01:28)
[2024-06-10 04:00] VITALS: BP 114/55; TEMP 98.1; O2SAT 98
[2024-06-10 08:00] VITALS: BP 92/66; TEMP 98.2; O2SAT 98
[2024-06-10] MEDS: OLANZAPINE 2.5 MG TABLET PO SCH (08:08)
[2024-06-10 12:00] VITALS: BP 114/40; TEMP 98.3; O2SAT 98
[2024-06-10 16:00] VITALS: BP_SYST 116; BP_SYST 126; BP_DIAS 66; BP_DIAS 81; TEMP 98.1; TEMP 98.4; O2SAT 96
[2024-06-10 20:00] VITALS: BP 102/87; TEMP 98.2; O2SAT 94
[2024-06-10] MEDS ORDERED: LEVOFLOXACIN 750 MG /D5W 150ML 750 MG in PREMIX 1 EA IV SCH (21:00)
[2024-06-11] VITALS (7 sets, daily range): BP systolic 106–148; BP diastolic 53–83; TEMP 97.4–98.2; O2SAT 92–99
[2024-06-11] MEDS ORDERED: IPRATROPIUM NEB FS 0.5 MG/2.5 ML AMPUL.NEB IH PRN (10:09)
[2024-06-11] MEDS ORDERED: ALBUTEROL FS 2.5 MG/0.5 ML VIAL.NEB NEB PRN (10:09)
[2024-06-11] MEDS: LEVOFLOXACIN (250MG) 250 MG TABLET PO SCH (12:27)
[2024-06-12] VITALS: BP 116/55; TEMP 97.7; O2SAT 97
[2024-06-12 04:00] VITALS: BP 105/55; TEMP 98.4; O2SAT 100
[2024-06-12 04:46] VITALS: BP 105/49; TEMP 98.4; O2SAT 100
[2024-06-12 08:00] VITALS: BP 106/55; TEMP 98.8; O2SAT 98
[2024-06-12 09:50] LABS: BASOPHILS % (AUTO) 0.4 % (0.0-2.0); EOSINOPHILS # (AUTO) 0.2 K/uL (0.0-0.7); EOSINOPHILS % (AUTO) 3.2 % (0.0-6.0); HEMATOCRIT 42 % (39-51); HEMOGLOBIN 13.3 g/dL (13.5-17.5); LYMPHOCYTES # (AUTO) 1.5 K/uL (0.8-4.8); MEAN CORPUSCULAR HEMOGLOBIN 29 PG (26.0-33.0); MEAN CORPUSCULAR HGB CONC 32 g/dl (31.0-36.0); MEAN CORPUSCULAR VOLUME 89 fL (80-96); MONOCYTES # (AUTO) 0.7 K/uL (0.1-1.30); MONOCYTES % (AUTO) 9.9 % (2.0-12.0); NEUTROPHILS # (AUTO) 4.5 K/uL (1.8-8.9); NEUTROPHILS % (AUTO) 64.5 % (43.0-81.0); PLATELET COUNT (AUTO) 229 K/uL (150-450); RED BLOOD CELL COUNT(AUTO) 4.66 MIL/uL (4.5-6.0); RED CELL DISTRIBUTION WIDTH 13.9 % (11.5-15.0)
[2024-06-12 09:50] LABS: CALCIUM, SERUM 9.4 mg/dL (8.5-10.1); CARBON DIOXIDE 25 mmol/L (21-32); CHLORIDE 102 mmol/L (98-107); CREATININE 1.1 mg/dL (0.6-1.3); GLUCOSE 91 mg/dL (74-106); POTASSIUM 4.2 mmol/L (3.5-5.1); SODIUM SERUM 139 mmol/L (136-145); UREA NITROGEN, BLOOD 24 mg/dL (7-18)
[2024-06-12] MEDS ORDERED: LEVO750T46 PO (10:14)
[2024-06-12] MEDS: MAGNESIUM HYDROXIDE 30 ML UDC PO STA (11:56)
[2024-06-12 12:00] VITALS: BP 113/58; TEMP 98.9; O2SAT 100
== END 2024-06-12 14:30 | DRG 193 ==
LOC: ER 19:22 → MED 23:11 → TELE 23:54 → MED 06-12 14:03
PROVIDERS: ADMIT Nurse Practitioner Family; ATTEND Nurse Practitioner Family
DX: J15.9 Unspecified bacterial pneumonia (principal); I50.33 Acute on chronic diastolic (congestive) heart failure; E46 Unspecified protein-calorie malnutrition; E11.9 Type 2 diabetes mellitus without complications; E88.09 Other disorders of plasma-protein metabolism, not elsewhere classified; F20.9 Schizophrenia, unspecified; Z79.4 Long term (current) use of insulin; Z85.810 Personal history of malignant neoplasm of tongue; F03.90 Unspecified dementia, unspecified severity, without behavioral disturbance, psychotic disturbance, mood disturbance, and anxiety; Z20.822 Contact with and (suspected) exposure to COVID-19; Z68.26 Body mass index [BMI] 26.0-26.9, adult; I11.0 Hypertensive heart disease with heart failure
CPT/HCPCS: 36415; 71045-TC; 80048-TC; 80076-TC; 83735-TC; 83880; 84100-TC; 84443-TC; 84484-TC; 85025-TC; 85730-TC; 87040-TC; 87081-TC; 92526; 92611-TC; 93307-TC; A4223; G0378; J0692; J1940; J1956; J3371; J7040; J7060

== ENCOUNTER 2024-10-22 21:12 | Inpatient (IN) | payer MEDICARE, OTHER ==
[~2024-10-22] VITALS: Ht 165.1 cm; Wt 82.6 kg
[~2024-10-22 21:12] MED LIST changes: -ASCO100058 PO; +ASCO500T10 PO; -INSU100V11 SQ; +LEVO750T46 PO
[2024-10-22] MEDS ORDERED: FUROSEMIDE 40 MG/4 ML VIAL ONE (22:00)
[2024-10-22] MEDS ORDERED: PIPERACI/TAZO 3.375GM/D5W 50ML PB IV ONE (22:01)
[2024-10-22 22:09] LABS: HEMATOCRIT 41 % (39-51); HEMOGLOBIN 13.4 g/dL (13.5-17.5); LYMPHOCYTES # (AUTO) 0.5 K/uL (0.8-4.8); LYMPHOCYTES % (AUTO) 2.5 % (20.0-44.0); MEAN CORPUSCULAR HEMOGLOBIN 29 PG (26.0-33.0); MEAN CORPUSCULAR HGB CONC 33 g/dl (31.0-36.0); MEAN CORPUSCULAR VOLUME 88 fL (80-96); MONOCYTES # (AUTO) 0.8 K/uL (0.1-1.30); MONOCYTES % (AUTO) 3.9 % (2.0-12.0); NEUTROPHILS # (AUTO) 20.1 K/uL (1.8-8.9); NEUTROPHILS % (AUTO) 93.6 % (43.0-81.0); PLATELET COUNT (AUTO) 181 K/uL (150-450); RED CELL DISTRIBUTION WIDTH 15.1 % (11.5-15.0); WHITE BLOOD COUNT (AUTO) 21.5 K/uL (4.3-11.0)
[2024-10-22] MEDS: FUROSEMIDE 40 MG/4 ML VIAL IV ONE (22:15)
[2024-10-22] MEDS: PIPERACILLIN /TAZOBACTAM 3.375 G in IV D5W 50 ML IV ONE (22:25)
[2024-10-22 22:27] LABS: ALBUMIN 3.5 g/dL (3.4-5.0); BILIRUBIN,DIRECT 0.3 mg/dL (0.0-0.2); BILIRUBIN,TOTAL 0.8 mg/dL (0.2-1.0); CALCIUM, SERUM 9.9 mg/dL (8.5-10.1); CREATININE 1.3 mg/dL (0.6-1.3); POTASSIUM 4.6 mmol/L (3.5-5.1); TOTAL PROTEIN, SERUM 8.1 g/dL (6.4-8.2)
[2024-10-22 22:30] LABS: LACTIC ACID 1.7 mmol/L (0.4-2.0)
[2024-10-22 22:50] LABS: INR 1.07 (0.91-1.10); PARTIAL THROMBOPLASTIN TIME 28.1 SEC (24.3-34.3); PROTHROMBIN TIME 11.3 SECS (9.2-11.1)
[2024-10-22] MEDS ORDERED: ACETAMINOPHEN ES 500 MG TABLET ONE (23:09)
[2024-10-22] MEDS: ACETAMINOPHEN ES 500 MG TABLET PO ONE (23:15)
[2024-10-22] MEDS ORDERED: VANCOMYCIN 1 GM /D5W 250 ML PB IV ONE (23:16)
[2024-10-22] MEDS: VANCOMYCIN 1 GM in IV D5W 250 ML IV ONE (23:25)
[2024-10-23] VITALS (41 sets, daily range): BP systolic 81–148; BP diastolic 47–100; TEMP 98.6; O2SAT 94–100
[2024-10-23] MEDS ORDERED: ONDANSETRON HCL/PF 4 MG/2 ML VIAL IVP PRN
[2024-10-23] MEDS ORDERED: MAG HYDROX/AL HYDROX/SIMETH 30 ML UDC PO PRN
[2024-10-23] MEDS ORDERED: MAGNESIUM HYDROXIDE 30 ML UDC PO PRN
[2024-10-23] MEDS ORDERED: DEXTROSE 50%-WATER 50 ML DISP.SYRIN IV PRN
[2024-10-23] MEDS ORDERED: Z GUARD REMEDY 4 OZ OINT TP PRN
[2024-10-23 00:37] LABS: ABG PCO2 37.1 mmHg (35.0-48.0); ABG PH 7.413 (7.350-7.450); ABG PO2 144.8 mmHg (83.0-108.0); ABG TOTAL HEMOGLOBIN 13.7 G/dL (13.5-17.5); COHb 0.5 % (0.5-1.5); MetHb 0.2 % (0.0-1.5); O2Hb 98.3 % (94.0-97.0); SITE, ABG LEFT BRACHIAL
[2024-10-23] MEDS ORDERED: ENOXAPARIN SODIUM 40 MG/0.4 ML DISP.SYRIN SQ ONE (03:36)
[2024-10-23] MEDS: ENOXAPARIN SODIUM 40 MG/0.4 ML DISP.SYRIN SQ SCH (03:45)
[2024-10-23] MEDS: BLOOD SUGAR DIAGNOSTIC 1 EACH STRIP IN SCH (03:45)
[2024-10-23] MEDS: ONDANSETRON HCL/PF - ER 4 MG/2 ML VIAL IV ONE (04:00)
[2024-10-23] MEDS ORDERED: PROPOFOL 100 ML ONE ×3 (04:03→11:21)
[2024-10-23] MEDS: [UNRECOGNIZED DRUG - OTHER] IV ONE (04:07)
[2024-10-23] MEDS: SUCCINYLCHOLINE CHLORIDE 20 MG/ML VIAL IV ONE (04:08)
[2024-10-23] MEDS ORDERED: FENTANYL PF 100MCG/2ML AMPUL ONE (04:39)
[2024-10-23] MEDS ORDERED: NOREPINEPHRINE 8MG/250ML RTU 250 ML IV ONE ×4 (04:50→11:18)
[2024-10-23] MEDS: PIPERACILLIN /TAZOBACTAM 3.375 G in IV D5W 50 ML IV SCH (05:00)
[2024-10-23] MEDS: PROPOFOL 100 ML IV PRN ×2 (05:34→17:20)
[2024-10-23] MEDS: NOREPINEPHRINE 8 MG in IV D5W 242 ML IV PRN (05:35)
[2024-10-23] MEDS ORDERED: CT SWABBABLE VALVE TRANS SET 1 EA INFUS.SET MC ONE (05:38)
[2024-10-23] MEDS ORDERED: IOHEXOL-300 100 ML VIAL IV ONE (05:38)
[2024-10-23] MEDS ORDERED: SUCCINYLCHOLINE CHLORIDE 20 MG/ML VIAL ONE (06:00)
[2024-10-23] MEDS: FENTANYL CITRAT IV 2,500 MCG in IV NS 0.9% 200 ML IV PRN (06:03)
[2024-10-23 06:11] LABS: ABG BASE EXCESS -3.7 mmol/L (-2.0-3.0); ABG OXYGEN SATURATION 97.7 % (94.0-98.0); ABG PCO2 52.5 mmHg (35.0-48.0); ABG PH 7.273 (7.350-7.450); ABG TOTAL HEMOGLOBIN 14.2 G/dL (13.5-17.5); COHb 0.2 % (0.5-1.5); MetHb 0.5 % (0.0-1.5); PEEP,BG 10 cm H2O; SITE, ABG LEFT BRACHIAL; VT, ABG 450 mL
[2024-10-23 07:28] LABS: BASOPHILS % (AUTO) 0.1 % (0.0-2.0); HEMATOCRIT 40 % (39-51); LYMPHOCYTES # (AUTO) 1.8 K/uL (0.8-4.8); LYMPHOCYTES % (AUTO) 10.7 % (20.0-44.0); MEAN CORPUSCULAR HEMOGLOBIN 29 PG (26.0-33.0); MEAN CORPUSCULAR HGB CONC 32 g/dl (31.0-36.0); MEAN CORPUSCULAR VOLUME 90 fL (80-96); MONOCYTES # (AUTO) 0.8 K/uL (0.1-1.30); NEUTROPHILS # (AUTO) 14.1 K/uL (1.8-8.9); NEUTROPHILS % (AUTO) 84.2 % (43.0-81.0); PLATELET COUNT (AUTO) 192 K/uL (150-450); RED BLOOD CELL COUNT(AUTO) 4.51 MIL/uL (4.5-6.0); RED CELL DISTRIBUTION WIDTH 15.3 % (11.5-15.0); WHITE BLOOD COUNT (AUTO) 16.7 K/uL (4.3-11.0)
[2024-10-23 07:57] LABS: CALCIUM, SERUM 8.7 mg/dL (8.5-10.1); CREATININE 1.6 mg/dL (0.6-1.3); MAGNESIUM 1.9 mg/dL (1.8-2.4); PHOSPHORUS 5.1 mg/dL (2.5-4.9); POTASSIUM 4.5 mmol/L (3.5-5.1)
[2024-10-23] MEDS ORDERED: ALBU2.5V13 IH (08:01)
[2024-10-23] MEDS ORDERED: PANT40TA49 PO (08:01)
[2024-10-23 08:42] LABS: THYROID STIMULATING HORMONE 1.85 uIU/mL (0.358-3.74)
[2024-10-23 08:49] LABS: BAND % (MANUAL) 13 % (0.0-5.0); LYMPHOCYTES % (MANUAL) 8 % (16-48); MONOCYTES % (MANUAL) 4 % (0-11.0); NEUTROPHILS % (MANUAL) 75 (42-76); PLATELET ESTIMATE ADEQUATE
[2024-10-23] MEDS ORDERED: FUROSEMIDE 40 MG/4 ML VIAL IV SCH (09:00)
[2024-10-23] MEDS ORDERED: PANTOPRAZOLE 40 MG VIAL ONE (09:17)
[2024-10-23] MEDS: PANTOPRAZOLE 40 MG VIAL IV SCH (09:25)
[2024-10-23] MEDS ORDERED: PHENYLEPHRINE 10 MG/ML VIAL IV PRN (14:30)
[2024-10-23] MEDS: NICOTINE PATCH (14MG) 14 MG PATCH.TD24 TD SCH (15:00)
[2024-10-23] MEDS: NOREPINEPHRINE 32 MG in IV NS 0.9% 218 ML IV PRN (17:29)
[2024-10-23] MEDS: VANCOMYCIN 1 GM in IV D5W 250ml IV SCH (23:59)
[2024-10-24] VITALS (96 sets, daily range): BP systolic 92–145; BP diastolic 51–86; TEMP 98.9–100.9; O2SAT 94–100
[2024-10-24 04:15] LABS: BASOPHILS % (AUTO) 0.1 % (0.0-2.0); EOSINOPHILS % (AUTO) 0.1 % (0.0-6.0); HEMATOCRIT 43 % (39-51); HEMOGLOBIN 14.8 g/dL (13.5-17.5); LYMPHOCYTES # (AUTO) 0.8 K/uL (0.8-4.8); LYMPHOCYTES % (AUTO) 7.7 % (20.0-44.0); MEAN CORPUSCULAR HEMOGLOBIN 31 PG (26.0-33.0); MEAN CORPUSCULAR HGB CONC 35 g/dl (31.0-36.0); MEAN CORPUSCULAR VOLUME 88 fL (80-96); MONOCYTES # (AUTO) 0.5 K/uL (0.1-1.30); MONOCYTES % (AUTO) 4.8 % (2.0-12.0); NEUTROPHILS # (AUTO) 8.6 K/uL (1.8-8.9); NEUTROPHILS % (AUTO) 87.3 % (43.0-81.0); PLATELET COUNT (AUTO) 166 K/uL (150-450); RED BLOOD CELL COUNT(AUTO) 4.84 MIL/uL (4.5-6.0); RED CELL DISTRIBUTION WIDTH 15.2 % (11.5-15.0); WHITE BLOOD COUNT (AUTO) 9.8 K/uL (4.3-11.0)
[2024-10-24 04:52] LABS: CALCIUM, SERUM 8.4 mg/dL (8.5-10.1); CREATININE 1.8 mg/dL (0.6-1.3); POTASSIUM 4.5 mmol/L (3.5-5.1)
[2024-10-24] MEDS: NOREPINEPHRINE 4 MG/4 ML AMPUL IV ONE (06:24)
[2024-10-24] MEDS: ACETAMINOPHEN 325 MG TABLET PO PRN (08:35)
[2024-10-24 09:15] LABS: ABG OXYGEN SATURATION 94.3 % (94.0-98.0); ABG PCO2 34.8 mmHg (35.0-48.0); ABG PH 7.383 (7.350-7.450); ABG PO2 65.3 mmHg (83.0-108.0); ABG TOTAL HEMOGLOBIN 15.1 G/dL (13.5-17.5); COHb 0.8 % (0.5-1.5); MetHb 0.1 % (0.0-1.5); O2Hb 93.5 % (94.0-97.0); PEEP,BG 8 cm H2O; SITE, ABG ALINE; VT, ABG 475 mL
[2024-10-24] MEDS: IV D5/ 0.9% NACL 1,000 ML IV PRN (10:27)
[2024-10-24] MEDS: ZOSYN IVPB 2.25 G in IV D5W 50ml IV SCH (13:15)
[2024-10-24] MEDS: INSULIN REGULAR, HUMAN 100 UNIT/ML 3 ML VIAL SQ PRN (17:16)
[2024-10-25] VITALS (92 sets, daily range): BP systolic 84–125; BP diastolic 55–72; TEMP 98–98.3; O2SAT 95–99
[2024-10-25 04:38] LABS: BASOPHILS % (AUTO) 0.3 % (0.0-2.0); EOSINOPHILS % (AUTO) 0.1 % (0.0-6.0); HEMATOCRIT 36 % (39-51); HEMOGLOBIN 12.2 g/dL (13.5-17.5); LYMPHOCYTES # (AUTO) 0.5 K/uL (0.8-4.8); LYMPHOCYTES % (AUTO) 4.1 % (20.0-44.0); MEAN CORPUSCULAR HEMOGLOBIN 29 PG (26.0-33.0); MEAN CORPUSCULAR HGB CONC 34 g/dl (31.0-36.0); MEAN CORPUSCULAR VOLUME 87 fL (80-96); MONOCYTES # (AUTO) 0.5 K/uL (0.1-1.30); MONOCYTES % (AUTO) 3.7 % (2.0-12.0); NEUTROPHILS # (AUTO) 11.6 K/uL (1.8-8.9); NEUTROPHILS % (AUTO) 91.8 % (43.0-81.0); PLATELET COUNT (AUTO) 140 K/uL (150-450); RED BLOOD CELL COUNT(AUTO) 4.18 MIL/uL (4.5-6.0); RED CELL DISTRIBUTION WIDTH 14.7 % (11.5-15.0); WHITE BLOOD COUNT (AUTO) 12.6 K/uL (4.3-11.0)
[2024-10-25 05:20] LABS: ALBUMIN 1.8 g/dL (3.4-5.0); BILIRUBIN,TOTAL 0.5 mg/dL (0.2-1.0); CALCIUM, SERUM 7.9 mg/dL (8.5-10.1); CREATININE 1.7 mg/dL (0.6-1.3); MAGNESIUM 2.3 mg/dL (1.8-2.4); POTASSIUM 3.8 mmol/L (3.5-5.1); TOTAL PROTEIN, SERUM 6.4 g/dL (6.4-8.2)
[2024-10-25] MEDS: GLUCERNA 1.2 1,000 ML BOTTLE NG PRN (12:16)
[2024-10-25] MEDS: NEUTRA PHOS 1 POWD.PACKET NG ONE (18:04)
[2024-10-26] VITALS (74 sets, daily range): BP systolic 96–128; BP diastolic 54–87; TEMP 97.8–98.8; O2SAT 95–100
[2024-10-26 05:15] LABS: BASOPHILS % (AUTO) 0.1 % (0.0-2.0); EOSINOPHILS # (AUTO) 0.3 K/uL (0.0-0.7); EOSINOPHILS % (AUTO) 2.4 % (0.0-6.0); HEMATOCRIT 33 % (39-51); HEMOGLOBIN 11.1 g/dL (13.5-17.5); LYMPHOCYTES # (AUTO) 0.6 K/uL (0.8-4.8); LYMPHOCYTES % (AUTO) 5.3 % (20.0-44.0); MEAN CORPUSCULAR HEMOGLOBIN 29 PG (26.0-33.0); MEAN CORPUSCULAR HGB CONC 34 g/dl (31.0-36.0); MEAN CORPUSCULAR VOLUME 86 fL (80-96); MONOCYTES # (AUTO) 0.8 K/uL (0.1-1.30); MONOCYTES % (AUTO) 6.6 % (2.0-12.0); NEUTROPHILS % (AUTO) 85.6 % (43.0-81.0); PLATELET COUNT (AUTO) 125 K/uL (150-450); RED BLOOD CELL COUNT(AUTO) 3.87 MIL/uL (4.5-6.0); RED CELL DISTRIBUTION WIDTH 14.5 % (11.5-15.0); WHITE BLOOD COUNT (AUTO) 11.6 K/uL (4.3-11.0)
[2024-10-26 05:25] LABS: CALCIUM, SERUM 7.8 mg/dL (8.5-10.1); PHOSPHORUS 1.6 mg/dL (2.5-4.9)
[2024-10-26] MEDS: PANTOPRAZOLE 40 MG/PACK PACK GT SCH (08:38)
[2024-10-26] MEDS: POTASSIUM CHLORIDE 20 MEQ POWDER PACKET NG SCH (09:43)
[2024-10-26 13:09] LABS: *SPE A/G RATIO 0.5 (0.7-1.7); *SPE ALBUMIN 1.9 g/dL (2.9-4.4); *SPE ALPHA-1-GLOBULIN 0.5 g/dL (0.0-0.4); *SPE ALPHA-2-GLOBULIN 0.3 g/dL (0.4-1.0); *SPE BETA GLOBULIN 1.5 g/dL (0.7-1.3); *SPE GLOBULIN, TOTAL 3.5 g/dL (2.2-3.9); *SPE M-SPIKE 0.6 g/dL (Not Observed); *SPE PROTEIN TOTAL 5.4 g/dL (6.0-8.5); *SPEGAMMA GLOBULIN 1.2 g/dL (0.4-1.8)
[2024-10-26] MEDS: NEUTRA PHOS 1 POWD.PACKET NG ONE (15:18)
[2024-10-27] VITALS (93 sets, daily range): BP systolic 91–139; BP diastolic 49–112; TEMP 98–98.8; O2SAT 93–100
[2024-10-27 05:54] LABS: CALCIUM, SERUM 7.8 mg/dL (8.5-10.1); CREATININE 0.9 mg/dL (0.6-1.3); PHOSPHORUS 1.6 mg/dL (2.5-4.9)
[2024-10-27 10:11] LABS: CREATININE 0.9 mg/dL (0.6-1.3); POTASSIUM 3.3 mmol/L (3.5-5.1)
[2024-10-27 10:24] LABS: BASOPHILS % (AUTO) 0.2 % (0.0-2.0)
[2024-10-27 10:40] LABS: NEUTROPHILS # (AUTO) 8.8 K/uL (1.8-8.9)
[2024-10-27 10:47] LABS: EOSINOPHILS # (AUTO) 0.2 K/uL (0.0-0.7); EOSINOPHILS % (AUTO) 1.6 % (0.0-6.0); HEMATOCRIT 32 % (39-51); HEMOGLOBIN 11.2 g/dL (13.5-17.5); LYMPHOCYTES # (AUTO) 0.6 K/uL (0.8-4.8); LYMPHOCYTES % (AUTO) 5.6 % (20.0-44.0); MEAN CORPUSCULAR HEMOGLOBIN 30 PG (26.0-33.0); MEAN CORPUSCULAR HGB CONC 35 g/dl (31.0-36.0); MEAN CORPUSCULAR VOLUME 85 fL (80-96); MONOCYTES % (AUTO) 9.5 % (2.0-12.0); NEUTROPHILS % (AUTO) 83.1 % (43.0-81.0); PLATELET COUNT (AUTO) 123 K/uL (150-450); RED BLOOD CELL COUNT(AUTO) 3.76 MIL/uL (4.5-6.0); RED CELL DISTRIBUTION WIDTH 14.4 % (11.5-15.0); WHITE BLOOD COUNT (AUTO) 10.6 K/uL (4.3-11.0)
[2024-10-27 11:08] LABS: PTH, INTACT 61 pg/mL (15-65)
[2024-10-27] MEDS: POTASSIUM CHLORIDE 20 MEQ POWDER PACKET NG ONE (13:41)
[2024-10-27 15:13] LABS: EOSINOPHILS % (MANUAL) 2 % (0-4); LYMPHOCYTES % (MANUAL) 7 % (16-48); MONOCYTES % (MANUAL) 7 % (0-11.0); NEUTROPHILS % (MANUAL) 84 (42-76)
[2024-10-27 15:14] LABS: ANISOCYTOSIS 1+; PLATELET ESTIMATE DECREASED
[2024-10-27] MEDS: NEUTRA PHOS 1 POWD.PACKET NG ONE (17:12)
[2024-10-27] MEDS: VANCOMYCIN HCL 1.25 GM in IV D5W 250 ML IV SCH (22:00)
[2024-10-28] VITALS (50 sets, daily range): BP systolic 92–120; BP diastolic 51–71; TEMP 98–99.8; O2SAT 97–100
[2024-10-28 05:36] LABS: BASOPHILS % (AUTO) 0.2 % (0.0-2.0); EOSINOPHILS # (AUTO) 0.2 K/uL (0.0-0.7); EOSINOPHILS % (AUTO) 2.3 % (0.0-6.0); HEMATOCRIT 35 % (39-51); HEMOGLOBIN 11.8 g/dL (13.5-17.5); LYMPHOCYTES # (AUTO) 0.9 K/uL (0.8-4.8); LYMPHOCYTES % (AUTO) 9.3 % (20.0-44.0); MEAN CORPUSCULAR HEMOGLOBIN 30 PG (26.0-33.0); MEAN CORPUSCULAR HGB CONC 34 g/dl (31.0-36.0); MEAN CORPUSCULAR VOLUME 86 fL (80-96); MONOCYTES % (AUTO) 10.2 % (2.0-12.0); NEUTROPHILS # (AUTO) 7.5 K/uL (1.8-8.9); PLATELET COUNT (AUTO) 123 K/uL (150-450); RED BLOOD CELL COUNT(AUTO) 4.01 MIL/uL (4.5-6.0); RED CELL DISTRIBUTION WIDTH 14.9 % (11.5-15.0); WHITE BLOOD COUNT (AUTO) 9.7 K/uL (4.3-11.0)
[2024-10-28 05:55] LABS: CREATININE 0.9 mg/dL (0.6-1.3); MAGNESIUM 2.4 mg/dL (1.8-2.4); PHOSPHORUS 2.8 mg/dL (2.5-4.9); POTASSIUM 4.4 mmol/L (3.5-5.1)
[2024-10-28] MEDS: IV NS 0.9% 250 ML IV PRN (11:24)
[2024-10-28] MEDS ORDERED: DEXTROSE 50%-WATER 50 ML DISP.SYRIN IV PRN (12:00)
[2024-10-28] MEDS: PIPERACILLIN /TAZOBACTAM 3.375 G in IV D5W 100 ML IV SCH (13:19)
[2024-10-28] MEDS: BLOOD SUGAR DIAGNOSTIC 1 EACH STRIP IN SCH (17:35)
[2024-10-29] VITALS (38 sets, daily range): BP systolic 88–131; BP diastolic 51–79; TEMP 97.5–98.8; O2SAT 98–100
[2024-10-29] MEDS: INSULIN REGULAR, HUMAN 100 UNIT/ML 3 ML VIAL SQ PRN (00:01)
[2024-10-29 05:32] LABS: BASOPHILS % (AUTO) 0.2 % (0.0-2.0); EOSINOPHILS # (AUTO) 0.2 K/uL (0.0-0.7); EOSINOPHILS % (AUTO) 2.7 % (0.0-6.0); HEMATOCRIT 36 % (39-51); HEMOGLOBIN 12.1 g/dL (13.5-17.5); LYMPHOCYTES # (AUTO) 0.8 K/uL (0.8-4.8); LYMPHOCYTES % (AUTO) 9.8 % (20.0-44.0); MEAN CORPUSCULAR HEMOGLOBIN 29 PG (26.0-33.0); MEAN CORPUSCULAR HGB CONC 33 g/dl (31.0-36.0); MEAN CORPUSCULAR VOLUME 86 fL (80-96); MONOCYTES # (AUTO) 0.6 K/uL (0.1-1.30); MONOCYTES % (AUTO) 7.4 % (2.0-12.0); NEUTROPHILS # (AUTO) 6.9 K/uL (1.8-8.9); NEUTROPHILS % (AUTO) 79.9 % (43.0-81.0); PLATELET COUNT (AUTO) 170 K/uL (150-450); RED BLOOD CELL COUNT(AUTO) 4.21 MIL/uL (4.5-6.0); RED CELL DISTRIBUTION WIDTH 14.9 % (11.5-15.0); WHITE BLOOD COUNT (AUTO) 8.6 K/uL (4.3-11.0)
[2024-10-29 15:44] LABS: CALCIUM, SERUM 7.9 mg/dL (8.5-10.1); POTASSIUM 3.8 mmol/L (3.5-5.1)
[2024-10-29] MEDS: PRECEDEX 400 MCG/100 ML BOTTLE 100 ML IV PRN (20:01)
[2024-10-30] VITALS (40 sets, daily range): BP systolic 86–146; BP diastolic 51–95; TEMP 98–98.9; O2SAT 95–100
[2024-10-30 05:06] LABS: BASOPHILS % (AUTO) 0.2 % (0.0-2.0); EOSINOPHILS # (AUTO) 0.3 K/uL (0.0-0.7); EOSINOPHILS % (AUTO) 2.8 % (0.0-6.0); HEMATOCRIT 34 % (39-51); HEMOGLOBIN 11.4 g/dL (13.5-17.5); LYMPHOCYTES # (AUTO) 0.9 K/uL (0.8-4.8); LYMPHOCYTES % (AUTO) 8.7 % (20.0-44.0); MEAN CORPUSCULAR HEMOGLOBIN 28 PG (26.0-33.0); MEAN CORPUSCULAR HGB CONC 34 g/dl (31.0-36.0); MEAN CORPUSCULAR VOLUME 85 fL (80-96); MONOCYTES # (AUTO) 0.5 K/uL (0.1-1.30); NEUTROPHILS # (AUTO) 8.8 K/uL (1.8-8.9); NEUTROPHILS % (AUTO) 83.3 % (43.0-81.0); PLATELET COUNT (AUTO) 233 K/uL (150-450); RED BLOOD CELL COUNT(AUTO) 4.01 MIL/uL (4.5-6.0); WHITE BLOOD COUNT (AUTO) 10.6 K/uL (4.3-11.0)
[2024-10-30 05:19] LABS: CALCIUM, SERUM 7.9 mg/dL (8.5-10.1); CARBON DIOXIDE 26 mmol/L (21-32); CHLORIDE 108 mmol/L (98-107); CREATININE 0.9 mg/dL (0.6-1.3); GLUCOSE 168 mg/dL (74-106); POTASSIUM 3.3 mmol/L (3.5-5.1); SODIUM SERUM 138 mmol/L (136-145); UREA NITROGEN, BLOOD 11 mg/dL (7-18)
[2024-10-30 06:23] LABS: EOSINOPHILS % (MANUAL) 4 % (0-4); LYMPHOCYTES % (MANUAL) 11 % (16-48); MONOCYTES % (MANUAL) 5 % (0-11.0); NEUTROPHILS % (MANUAL) 80 (42-76)
[2024-10-30 06:24] LABS: ANISOCYTOSIS 1+; PLATELET ESTIMATE ADEQUATE; TARGET CELLS 1+
[2024-10-30] MEDS: POTASSIUM CHLORIDE 20 MEQ POWDER PACKET NG SCH (10:35)
[2024-10-30] MEDS ORDERED: MAGNESIUM HYDROXIDE 30 ML UDC PO PRN (15:30)
[2024-10-30] MEDS ORDERED: BISACODYL SUPP (10 MG) 10 MG/SUPP.RECT SUPP.RECT RC PRN (15:30)
[2024-10-30] MEDS ORDERED: NA PHOS,M-B/NA PHOS,DI-BA 1 EA ENEMA RC PRN (15:30)
[2024-10-30] MEDS ORDERED: ALBUTEROL FS 2.5 MG/0.5 ML VIAL.NEB IH PRN (15:30)
[2024-10-30] MEDS ORDERED: DOCUSATE SODIUM 100 MG CAPSULE PO SCH (17:00)
[2024-10-30] MEDS: DOCUSATE SODIUM LIQ 100 MG/10 ML UDC NG SCH (21:14)
[2024-10-31] VITALS (39 sets, daily range): BP systolic 100–136; BP diastolic 53–74; TEMP 98–98.8; O2SAT 89–99
[2024-10-31 05:07] LABS: BASOPHILS % (AUTO) 0.2 % (0.0-2.0); EOSINOPHILS # (AUTO) 0.3 K/uL (0.0-0.7); HEMATOCRIT 32 % (39-51); HEMOGLOBIN 10.9 g/dL (13.5-17.5); LYMPHOCYTES # (AUTO) 1.1 K/uL (0.8-4.8); LYMPHOCYTES % (AUTO) 7.6 % (20.0-44.0); MEAN CORPUSCULAR HEMOGLOBIN 29 PG (26.0-33.0); MEAN CORPUSCULAR HGB CONC 34 g/dl (31.0-36.0); MEAN CORPUSCULAR VOLUME 84 fL (80-96); MONOCYTES # (AUTO) 0.5 K/uL (0.1-1.30); MONOCYTES % (AUTO) 3.8 % (2.0-12.0); NEUTROPHILS # (AUTO) 11.9 K/uL (1.8-8.9); NEUTROPHILS % (AUTO) 86.4 % (43.0-81.0); PLATELET COUNT (AUTO) 280 K/uL (150-450); RED BLOOD CELL COUNT(AUTO) 3.79 MIL/uL (4.5-6.0); RED CELL DISTRIBUTION WIDTH 15.2 % (11.5-15.0); WHITE BLOOD COUNT (AUTO) 13.8 K/uL (4.3-11.0)
[2024-10-31 05:21] LABS: CALCIUM, SERUM 8.3 mg/dL (8.5-10.1); CREATININE 0.8 mg/dL (0.6-1.3); POTASSIUM 3.2 mmol/L (3.5-5.1)
[2024-10-31 06:20] LABS: ABG BASE EXCESS -0.5 mmol/L (-2.0-3.0); ABG OXYGEN SATURATION 90.2 % (94.0-98.0); ABG PCO2 37.2 mmHg (35.0-48.0); ABG PH 7.421 (7.350-7.450); ABG PO2 55.4 mmHg (83.0-108.0); ABG TOTAL HEMOGLOBIN 11.6 G/dL (13.5-17.5); COHb 0.3 % (0.5-1.5); MetHb 0.2 % (0.0-1.5); O2Hb 89.7 % (94.0-97.0); SITE, ABG RIGHT RADIAL; VT, ABG 475 mL
[2024-10-31] MEDS: ASCORBIC ACID 500 MG TABLET PO SCH (09:32)
[2024-10-31] MEDS: MULTIVIT W/MINERALS 1 TAB TABLET PO SCH (09:32)
[2024-10-31] MEDS: POTASSIUM CHLORIDE 20 MEQ POWDER PACKET NG SCH (09:33)
[2024-11-01] VITALS (44 sets, daily range): BP systolic 92–150; BP diastolic 47–88; TEMP 98–99.3; O2SAT 93–99
[2024-11-01 05:25] LABS: CALCIUM, SERUM 8.6 mg/dL (8.5-10.1); CREATININE 0.9 mg/dL (0.6-1.3); POTASSIUM 3.8 mmol/L (3.5-5.1)
[2024-11-02] VITALS (48 sets, daily range): BP systolic 108–150; BP diastolic 50–83; TEMP 98.4–99.8; O2SAT 93–98
[2024-11-02 04:50] LABS: CALCIUM, SERUM 8.5 mg/dL (8.5-10.1); CREATININE 0.9 mg/dL (0.6-1.3); POTASSIUM 3.6 mmol/L (3.5-5.1)
[2024-11-03] VITALS (48 sets, daily range): BP systolic 94–151; BP diastolic 52–94; TEMP 99–99.7; O2SAT 92–96
[2024-11-03 05:05] LABS: BASOPHILS # (AUTO) 0.1 K/uL (0.0-0.2); BASOPHILS % (AUTO) 0.5 % (0.0-2.0); EOSINOPHILS # (AUTO) 0.2 K/uL (0.0-0.7); EOSINOPHILS % (AUTO) 1.2 % (0.0-6.0); HEMATOCRIT 32 % (39-51); HEMOGLOBIN 10.7 g/dL (13.5-17.5); MEAN CORPUSCULAR HEMOGLOBIN 28 PG (26.0-33.0); MEAN CORPUSCULAR HGB CONC 33 g/dl (31.0-36.0); MEAN CORPUSCULAR VOLUME 84 fL (80-96); MONOCYTES % (AUTO) 6.1 % (2.0-12.0); NEUTROPHILS # (AUTO) 13.7 K/uL (1.8-8.9); NEUTROPHILS % (AUTO) 86.2 % (43.0-81.0); PLATELET COUNT (AUTO) 372 K/uL (150-450); RED BLOOD CELL COUNT(AUTO) 3.79 MIL/uL (4.5-6.0); RED CELL DISTRIBUTION WIDTH 15.2 % (11.5-15.0); WHITE BLOOD COUNT (AUTO) 15.9 K/uL (4.3-11.0)
[2024-11-03 05:23] LABS: CALCIUM, SERUM 8.8 mg/dL (8.5-10.1); CREATININE 0.9 mg/dL (0.6-1.3); MAGNESIUM 2.4 mg/dL (1.8-2.4); PHOSPHORUS 3.8 mg/dL (2.5-4.9); POTASSIUM 4.1 mmol/L (3.5-5.1)
[2024-11-04] VITALS (48 sets, daily range): BP systolic 92–149; BP diastolic 47–69; TEMP 98.6–99.7; O2SAT 90–100
[2024-11-04 05:24] LABS: CALCIUM, SERUM 8.7 mg/dL (8.5-10.1); CREATININE 0.9 mg/dL (0.6-1.3); POTASSIUM 3.9 mmol/L (3.5-5.1)
[2024-11-04] MEDS: GLUCERNA 1.2 1,000 ML BOTTLE NG PRN (09:53)
[2024-11-04] MEDS: FUROSEMIDE 20 MG/2 ML VIAL IV SCH (09:53)
[2024-11-04] MEDS: ALBUTEROL HALF STRENGTH 1.25 MG/3 ML VIAL.NEB NEB SCH (13:13)
[2024-11-04] MEDS: IPRATROPIUM NEB FS 0.5 MG/2.5 ML AMPUL.NEB NEB SCH (13:13)
[2024-11-04] MEDS: ACETYLCYSTEINE 10% SOLN 400 MG/4 ML VIAL NEB SCH (15:51)
[2024-11-05] VITALS (33 sets, daily range): BP systolic 94–139; BP diastolic 46–87; TEMP 97.4–100.3; O2SAT 85–100
[2024-11-05 15:43] LABS: BASOPHILS # (AUTO) 0.1 K/uL (0.0-0.2); BASOPHILS % (AUTO) 0.8 % (0.0-2.0); EOSINOPHILS # (AUTO) 0.2 K/uL (0.0-0.7); EOSINOPHILS % (AUTO) 1.4 % (0.0-6.0); HEMATOCRIT 31 % (39-51); HEMOGLOBIN 10.3 g/dL (13.5-17.5); LYMPHOCYTES # (AUTO) 0.7 K/uL (0.8-4.8); MEAN CORPUSCULAR HEMOGLOBIN 28 PG (26.0-33.0); MEAN CORPUSCULAR HGB CONC 33 g/dl (31.0-36.0); MEAN CORPUSCULAR VOLUME 84 fL (80-96); MONOCYTES # (AUTO) 0.9 K/uL (0.1-1.30); MONOCYTES % (AUTO) 6.5 % (2.0-12.0); NEUTROPHILS # (AUTO) 11.7 K/uL (1.8-8.9); NEUTROPHILS % (AUTO) 86.3 % (43.0-81.0); PLATELET COUNT (AUTO) 482 K/uL (150-450); RED BLOOD CELL COUNT(AUTO) 3.69 MIL/uL (4.5-6.0); RED CELL DISTRIBUTION WIDTH 15.4 % (11.5-15.0); WHITE BLOOD COUNT (AUTO) 13.6 K/uL (4.3-11.0)
[2024-11-05 15:59] LABS: CALCIUM, SERUM 8.5 mg/dL (8.5-10.1); CREATININE 1.1 mg/dL (0.6-1.3); MAGNESIUM 2.5 mg/dL (1.8-2.4); PHOSPHORUS 4.6 mg/dL (2.5-4.9); POTASSIUM 4.2 mmol/L (3.5-5.1)
[2024-11-05] MEDS: FUROSEMIDE 20 MG/2 ML VIAL IV SCH ×2 (16:13→21:41)
[2024-11-06] VITALS (27 sets, daily range): BP systolic 99–155; BP diastolic 52–98; TEMP 98–99.2; O2SAT 91–100
[2024-11-06 04:46] LABS: BILIRUBIN,TOTAL 0.7 mg/dL (0.2-1.0); CALCIUM, SERUM 8.2 mg/dL (8.5-10.1); CREATININE 1.2 mg/dL (0.6-1.3); TOTAL PROTEIN, SERUM 6.7 g/dL (6.4-8.2)
[2024-11-06 04:52] LABS: ALBUMIN 1.1 g/dL (3.4-5.0)
[2024-11-06] MEDS: MIDAZOLAM HCL 2 MG/2ML VIAL IV ONE (15:55)
[2024-11-06] MEDS: FENTANYL PF 100MCG/2ML AMPUL IV PRN (15:56)
[2024-11-06] MEDS ORDERED: VECURONIUM 10 MG VIAL IV ONE (19:20)
[2024-11-06] MEDS: FUROSEMIDE 20 MG/2 ML VIAL IV SCH (20:33)
[2024-11-07] VITALS (42 sets, daily range): BP systolic 106–152; BP diastolic 48–92; TEMP 97.5–99.7; O2SAT 92–100
[2024-11-07 13:09] LABS: COCCIDIOIDES Abs, IgG,EIA 4.8 EIA Units (.); COCCIDIOIDES Abs, IgM,EIA 0.6 EIA Units (.)
[2024-11-08] VITALS (32 sets, daily range): BP systolic 101–140; BP diastolic 49–82; TEMP 98–98.9; O2SAT 91–100
[2024-11-08 04:56] LABS: BASOPHILS # (AUTO) 0.1 K/uL (0.0-0.2); BASOPHILS % (AUTO) 0.6 % (0.0-2.0); EOSINOPHILS # (AUTO) 0.3 K/uL (0.0-0.7); EOSINOPHILS % (AUTO) 3.1 % (0.0-6.0); HEMATOCRIT 27 % (39-51); LYMPHOCYTES % (AUTO) 9.7 % (20.0-44.0); MEAN CORPUSCULAR HEMOGLOBIN 28 PG (26.0-33.0); MEAN CORPUSCULAR HGB CONC 33 g/dl (31.0-36.0); MEAN CORPUSCULAR VOLUME 84 fL (80-96); MONOCYTES % (AUTO) 9.4 % (2.0-12.0); NEUTROPHILS # (AUTO) 7.9 K/uL (1.8-8.9); NEUTROPHILS % (AUTO) 77.2 % (43.0-81.0); PLATELET COUNT (AUTO) 531 K/uL (150-450); RED BLOOD CELL COUNT(AUTO) 3.21 MIL/uL (4.5-6.0); RED CELL DISTRIBUTION WIDTH 15.3 % (11.5-15.0); WHITE BLOOD COUNT (AUTO) 10.2 K/uL (4.3-11.0)
[2024-11-08 05:02] LABS: INR 1.06 (0.91-1.10); PROTHROMBIN TIME 11.2 SECS (9.2-11.1)
[2024-11-08 05:21] LABS: MAGNESIUM 2.5 mg/dL (1.8-2.4); PHOSPHORUS 3.8 mg/dL (2.5-4.9); POTASSIUM 3.7 mmol/L (3.5-5.1)
[2024-11-08] MEDS ORDERED: CEFAZOLIN 1 GM in IV D5W 50 ML IV ONE (08:30)
[2024-11-08] MEDS: CEFAZOLIN 1 GM in IV D5W 50 ML IV ONE (08:57)
[2024-11-09] VITALS (57 sets, daily range): BP systolic 79–158; BP diastolic 41–109; TEMP 98.7–99.6; O2SAT 90–100
[2024-11-09 05:16] LABS: BASOPHILS # (AUTO) 0.1 K/uL (0.0-0.2); BASOPHILS % (AUTO) 0.7 % (0.0-2.0); EOSINOPHILS # (AUTO) 0.2 K/uL (0.0-0.7); EOSINOPHILS % (AUTO) 2.1 % (0.0-6.0); HEMATOCRIT 28 % (39-51); HEMOGLOBIN 9.3 g/dL (13.5-17.5); LYMPHOCYTES % (AUTO) 9.4 % (20.0-44.0); MEAN CORPUSCULAR HEMOGLOBIN 28 PG (26.0-33.0); MEAN CORPUSCULAR HGB CONC 33 g/dl (31.0-36.0); MEAN CORPUSCULAR VOLUME 84 fL (80-96); MONOCYTES # (AUTO) 0.9 K/uL (0.1-1.30); MONOCYTES % (AUTO) 8.6 % (2.0-12.0); NEUTROPHILS # (AUTO) 8.7 K/uL (1.8-8.9); NEUTROPHILS % (AUTO) 79.2 % (43.0-81.0); PLATELET COUNT (AUTO) 562 K/uL (150-450); RED CELL DISTRIBUTION WIDTH 15.4 % (11.5-15.0); WHITE BLOOD COUNT (AUTO) 10.9 K/uL (4.3-11.0)
[2024-11-09 05:34] LABS: CALCIUM, SERUM 8.5 mg/dL (8.5-10.1); CREATININE 1.1 mg/dL (0.6-1.3); MAGNESIUM 2.4 mg/dL (1.8-2.4); PHOSPHORUS 3.9 mg/dL (2.5-4.9); POTASSIUM 3.4 mmol/L (3.5-5.1)
[2024-11-09] MEDS: QUETIAPINE FUMARATE 25 MG TABLET PO SCH ×2 (08:57→21:47)
[2024-11-09] MEDS: POTASSIUM CHLORIDE 20 MEQ POWDER PACKET GT ONE (08:57)
[2024-11-09] MEDS: PRECEDEX 400 MCG/100 ML BOTTLE 100 ML IV PRN (14:38)
[2024-11-09] MEDS: NOREPINEPHRINE 8 MG in IV D5W 250ML IV PRN (18:01)
[2024-11-10] VITALS (60 sets, daily range): BP systolic 83–142; BP diastolic 38–80; TEMP 97.8–100.1; O2SAT 87–100
[2024-11-10 04:42] LABS: BASOPHILS % (AUTO) 0.4 % (0.0-2.0); EOSINOPHILS # (AUTO) 0.2 K/uL (0.0-0.7); EOSINOPHILS % (AUTO) 1.8 % (0.0-6.0); HEMATOCRIT 29 % (39-51); HEMOGLOBIN 9.5 g/dL (13.5-17.5); LYMPHOCYTES # (AUTO) 0.7 K/uL (0.8-4.8); LYMPHOCYTES % (AUTO) 6.7 % (20.0-44.0); MEAN CORPUSCULAR HEMOGLOBIN 29 PG (26.0-33.0); MEAN CORPUSCULAR HGB CONC 33 g/dl (31.0-36.0); MEAN CORPUSCULAR VOLUME 86 fL (80-96); MONOCYTES # (AUTO) 0.9 K/uL (0.1-1.30); MONOCYTES % (AUTO) 8.1 % (2.0-12.0); NEUTROPHILS # (AUTO) 9.1 K/uL (1.8-8.9); PLATELET COUNT (AUTO) 578 K/uL (150-450); RED BLOOD CELL COUNT(AUTO) 3.35 MIL/uL (4.5-6.0); RED CELL DISTRIBUTION WIDTH 15.4 % (11.5-15.0); WHITE BLOOD COUNT (AUTO) 10.9 K/uL (4.3-11.0)
[2024-11-10 05:39] LABS: CALCIUM, SERUM 8.5 mg/dL (8.5-10.1); CREATININE 1.1 mg/dL (0.6-1.3); MAGNESIUM 2.4 mg/dL (1.8-2.4); PHOSPHORUS 3.5 mg/dL (2.5-4.9); POTASSIUM 3.2 mmol/L (3.5-5.1)
[2024-11-10] MEDS: QUETIAPINE FUMARATE 25 MG TABLET PO SCH ×3 (08:19→21:26)
[2024-11-10] MEDS ORDERED: OLANZAPINE 10 MG VIAL IM ONE (09:00)
[2024-11-10] MEDS: METOCLOPRAMIDE HCL 10 MG/2 ML VIAL IV SCH (09:25)
[2024-11-10] MEDS: OLANZAPINE 10 MG VIAL IM SCH (09:29)
[2024-11-10] MEDS: POTASSIUM CL. PREMIX PERIPHER. 50 ML IV SCH (09:29)
[2024-11-10] MEDS: LORAZEPAM INJ 2 MG/ML VIAL IV PRN (10:10)
[2024-11-10] MEDS ORDERED: DIATR MEGLU/DIATRIZOATE SODIUM 30 ML BOTTLE (GASTROGRAPHIN) ONE (10:39)
[2024-11-11] VITALS (25 sets, daily range): BP systolic 113–145; BP diastolic 55–102; TEMP 98.2–100.6; O2SAT 90–100
[2024-11-11] MEDS: LORAZEPAM INJ 2 MG/ML VIAL IV PRN (04:05)
[2024-11-11 05:21] LABS: BASOPHILS % (AUTO) 0.2 % (0.0-2.0); EOSINOPHILS # (AUTO) 0.3 K/uL (0.0-0.7); EOSINOPHILS % (AUTO) 3.5 % (0.0-6.0); HEMATOCRIT 30 % (39-51); HEMOGLOBIN 9.5 g/dL (13.5-17.5); LYMPHOCYTES # (AUTO) 0.7 K/uL (0.8-4.8); LYMPHOCYTES % (AUTO) 7.7 % (20.0-44.0); MEAN CORPUSCULAR HEMOGLOBIN 27 PG (26.0-33.0); MEAN CORPUSCULAR HGB CONC 32 g/dl (31.0-36.0); MEAN CORPUSCULAR VOLUME 85 fL (80-96); MONOCYTES # (AUTO) 0.8 K/uL (0.1-1.30); MONOCYTES % (AUTO) 8.8 % (2.0-12.0); NEUTROPHILS # (AUTO) 7.2 K/uL (1.8-8.9); NEUTROPHILS % (AUTO) 79.8 % (43.0-81.0); PLATELET COUNT (AUTO) 566 K/uL (150-450); RED CELL DISTRIBUTION WIDTH 15.5 % (11.5-15.0)
[2024-11-11 05:42] LABS: CALCIUM, SERUM 8.6 mg/dL (8.5-10.1); MAGNESIUM 2.3 mg/dL (1.8-2.4); PHOSPHORUS 3.7 mg/dL (2.5-4.9); POTASSIUM 3.6 mmol/L (3.5-5.1)
[2024-11-12] VITALS: BP 146/74; TEMP 98.4; O2SAT 95
[2024-11-12 04:00] VITALS: BP 144/79; TEMP 97.9; O2SAT 95
[2024-11-12 07:10] LABS: BASOPHILS # (AUTO) 0.1 K/uL (0.0-0.2); BASOPHILS % (AUTO) 0.9 % (0.0-2.0); EOSINOPHILS # (AUTO) 0.7 K/uL (0.0-0.7); EOSINOPHILS % (AUTO) 6.2 % (0.0-6.0); HEMATOCRIT 31 % (39-51); HEMOGLOBIN 10.1 g/dL (13.5-17.5); LYMPHOCYTES # (AUTO) 1.1 K/uL (0.8-4.8); LYMPHOCYTES % (AUTO) 9.9 % (20.0-44.0); MEAN CORPUSCULAR HEMOGLOBIN 28 PG (26.0-33.0); MEAN CORPUSCULAR HGB CONC 33 g/dl (31.0-36.0); MEAN CORPUSCULAR VOLUME 86 fL (80-96); MONOCYTES % (AUTO) 8.8 % (2.0-12.0); NEUTROPHILS # (AUTO) 8.6 K/uL (1.8-8.9); NEUTROPHILS % (AUTO) 74.2 % (43.0-81.0); PLATELET COUNT (AUTO) 523 K/uL (150-450); RED BLOOD CELL COUNT(AUTO) 3.58 MIL/uL (4.5-6.0); RED CELL DISTRIBUTION WIDTH 15.9 % (11.5-15.0); WHITE BLOOD COUNT (AUTO) 11.6 K/uL (4.3-11.0)
[2024-11-12 07:20] LABS: CALCIUM, SERUM 8.7 mg/dL (8.5-10.1); CREATININE 0.9 mg/dL (0.6-1.3); MAGNESIUM 2.3 mg/dL (1.8-2.4); PHOSPHORUS 3.4 mg/dL (2.5-4.9); POTASSIUM 3.6 mmol/L (3.5-5.1)
[2024-11-12 08:00] VITALS: BP 123/66; TEMP 98.4; O2SAT 95
[2024-11-12 12:00] VITALS: BP 123/66; TEMP 98.4; O2SAT 95
[2024-11-12] MEDS ORDERED: ENOXAPARIN SODIUM 30 MG/0.3 ML DISP.SYRIN SQ SCH (13:00)
[2024-11-12] MEDS: ENOXAPARIN SODIUM 40 MG/0.4 ML DISP.SYRIN SQ SCH (14:37)
[2024-11-12 16:00] VITALS: BP 123/66; TEMP 99.3; O2SAT 95
[2024-11-12 20:00] VITALS: BP 105/59; TEMP 97.9; O2SAT 95
[2024-11-13] VITALS: BP 105/59; TEMP 98.4; O2SAT 96
[2024-11-13 04:00] VITALS: BP 114/60; TEMP 98.6; O2SAT 96
[2024-11-13 07:49] LABS: BASOPHILS % (AUTO) 0.2 % (0.0-2.0); EOSINOPHILS # (AUTO) 0.7 K/uL (0.0-0.7); EOSINOPHILS % (AUTO) 7.4 % (0.0-6.0); HEMATOCRIT 34 % (39-51); HEMOGLOBIN 10.7 g/dL (13.5-17.5); LYMPHOCYTES # (AUTO) 0.9 K/uL (0.8-4.8); LYMPHOCYTES % (AUTO) 9.3 % (20.0-44.0); MEAN CORPUSCULAR HEMOGLOBIN 28 PG (26.0-33.0); MEAN CORPUSCULAR HGB CONC 32 g/dl (31.0-36.0); MEAN CORPUSCULAR VOLUME 87 fL (80-96); MONOCYTES % (AUTO) 9.8 % (2.0-12.0); NEUTROPHILS # (AUTO) 7.4 K/uL (1.8-8.9); NEUTROPHILS % (AUTO) 73.3 % (43.0-81.0); PLATELET COUNT (AUTO) 511 K/uL (150-450); RED BLOOD CELL COUNT(AUTO) 3.88 MIL/uL (4.5-6.0); RED CELL DISTRIBUTION WIDTH 16.2 % (11.5-15.0); WHITE BLOOD COUNT (AUTO) 10.1 K/uL (4.3-11.0)
[2024-11-13 08:00] VITALS: BP 149/73; TEMP 98.4; O2SAT 95
[2024-11-13 08:32] LABS: CREATININE 0.9 mg/dL (0.6-1.3); MAGNESIUM 2.4 mg/dL (1.8-2.4); PHOSPHORUS 3.6 mg/dL (2.5-4.9); POTASSIUM 3.7 mmol/L (3.5-5.1)
[2024-11-13 12:00] VITALS: BP 128/75; TEMP 98.2; O2SAT 96
[2024-11-13 16:00] VITALS: TEMP 98.9; O2SAT 98
[2024-11-13 20:00] VITALS: BP 162/89; TEMP 100.2; O2SAT 94
[2024-11-14] VITALS (10 sets, daily range): BP systolic 127–152; BP diastolic 66–89; TEMP 98.6–100.2; O2SAT 95–100
[2024-11-14 07:57] LABS: BASOPHILS % (AUTO) 0.3 % (0.0-2.0); EOSINOPHILS # (AUTO) 0.6 K/uL (0.0-0.7); EOSINOPHILS % (AUTO) 6.7 % (0.0-6.0); HEMATOCRIT 28 % (39-51); HEMOGLOBIN 8.7 g/dL (13.5-17.5); LYMPHOCYTES # (AUTO) 0.9 K/uL (0.8-4.8); LYMPHOCYTES % (AUTO) 9.6 % (20.0-44.0); MEAN CORPUSCULAR HEMOGLOBIN 27 PG (26.0-33.0); MEAN CORPUSCULAR HGB CONC 32 g/dl (31.0-36.0); MEAN CORPUSCULAR VOLUME 85 fL (80-96); MONOCYTES # (AUTO) 0.7 K/uL (0.1-1.30); MONOCYTES % (AUTO) 8.2 % (2.0-12.0); NEUTROPHILS # (AUTO) 6.8 K/uL (1.8-8.9); NEUTROPHILS % (AUTO) 75.2 % (43.0-81.0); PLATELET COUNT (AUTO) 490 K/uL (150-450); RED BLOOD CELL COUNT(AUTO) 3.25 MIL/uL (4.5-6.0); RED CELL DISTRIBUTION WIDTH 15.9 % (11.5-15.0); WHITE BLOOD COUNT (AUTO) 9.1 K/uL (4.3-11.0)
[2024-11-14 08:43] LABS: CALCIUM, SERUM 8.5 mg/dL (8.5-10.1); MAGNESIUM 2.3 mg/dL (1.8-2.4); PHOSPHORUS 3.5 mg/dL (2.5-4.9); POTASSIUM 3.8 mmol/L (3.5-5.1)
[2024-11-14 13:27] LABS: APPEARANCE,URINE TURBID (CLEAR); BILIRUBIN,URINE NEGATIVE (NEGATIVE); BLOOD, URINE 2+ Ery/uL (NEGATIVE); COLOR,URINE YELLOW (YELLOW); KETONES,URINE NEGATIVE (NEGATIVE); LEUKOCYTE ESTERASE ,URINE NEGATIVE (NEGATIVE); NITRITE, URINE NEGATIVE (NEGATIVE); PH,URINE 7.5 (5.0-8.0); PROTEIN,URINE 2+ mg/dl (NEGATIVE); UGLUCOSE NEGATIVE (NEGATIVE)
[2024-11-14 13:36] LABS: ADD URINE CULTURE NO; BACTERIA,URINE Few /HPF (None Seen); MUCUS,URINE Few /LPF (None Seen); RBC,URINE 21-50 /HPF (0-2); SQUAMOUS EPITHELIAL CELL,UR 0-2 /HPF (None Seen); URINE AMORPHOUS PHOSPHATES Few /HPF (None Seen)
[2024-11-15] VITALS: BP 121/75; TEMP 99.1; O2SAT 99
[2024-11-15 04:00] VITALS: BP 120/86; TEMP 99.1; O2SAT 96
[2024-11-15 08:00] VITALS: BP 132/71; TEMP 99.1; O2SAT 100
[2024-11-15 08:01] LABS: BASOPHILS % (AUTO) 0.4 % (0.0-2.0); EOSINOPHILS # (AUTO) 0.5 K/uL (0.0-0.7); EOSINOPHILS % (AUTO) 4.8 % (0.0-6.0); HEMATOCRIT 27 % (39-51); HEMOGLOBIN 8.8 g/dL (13.5-17.5); LYMPHOCYTES % (AUTO) 9.5 % (20.0-44.0); MEAN CORPUSCULAR HEMOGLOBIN 27 PG (26.0-33.0); MEAN CORPUSCULAR HGB CONC 32 g/dl (31.0-36.0); MEAN CORPUSCULAR VOLUME 84 fL (80-96); MONOCYTES # (AUTO) 0.7 K/uL (0.1-1.30); MONOCYTES % (AUTO) 6.8 % (2.0-12.0); NEUTROPHILS % (AUTO) 78.5 % (43.0-81.0); PLATELET COUNT (AUTO) 449 K/uL (150-450); RED BLOOD CELL COUNT(AUTO) 3.23 MIL/uL (4.5-6.0); RED CELL DISTRIBUTION WIDTH 16.2 % (11.5-15.0); WHITE BLOOD COUNT (AUTO) 10.2 K/uL (4.3-11.0)
[2024-11-15 08:11] LABS: CALCIUM, SERUM 8.9 mg/dL (8.5-10.1); CREATININE 0.9 mg/dL (0.6-1.3); MAGNESIUM 2.3 mg/dL (1.8-2.4); PHOSPHORUS 3.7 mg/dL (2.5-4.9); POTASSIUM 4.2 mmol/L (3.5-5.1)
[2024-11-15 12:00] VITALS: BP 133/78; TEMP 98.4; O2SAT 100
[2024-11-15 16:00] VITALS: BP 116/82; TEMP 98.4; O2SAT 98
[2024-11-15 20:00] VITALS: BP 138/79; TEMP 99.5; O2SAT 98
[2024-11-16] VITALS: BP 109/82; TEMP 99.7; O2SAT 98
[2024-11-16 04:00] VITALS: BP 101/45; TEMP 99.3; O2SAT 98
[2024-11-16 07:13] LABS: BASOPHILS # (AUTO) 0.1 K/uL (0.0-0.2); BASOPHILS % (AUTO) 0.6 % (0.0-2.0); EOSINOPHILS # (AUTO) 0.5 K/uL (0.0-0.7); EOSINOPHILS % (AUTO) 5.7 % (0.0-6.0); HEMATOCRIT 27 % (39-51); HEMOGLOBIN 8.8 g/dL (13.5-17.5); LYMPHOCYTES % (AUTO) 11.1 % (20.0-44.0); MEAN CORPUSCULAR HEMOGLOBIN 28 PG (26.0-33.0); MEAN CORPUSCULAR HGB CONC 33 g/dl (31.0-36.0); MEAN CORPUSCULAR VOLUME 84 fL (80-96); MONOCYTES # (AUTO) 0.7 K/uL (0.1-1.30); MONOCYTES % (AUTO) 7.9 % (2.0-12.0); NEUTROPHILS # (AUTO) 6.6 K/uL (1.8-8.9); NEUTROPHILS % (AUTO) 74.7 % (43.0-81.0); PLATELET COUNT (AUTO) 438 K/uL (150-450); RED BLOOD CELL COUNT(AUTO) 3.19 MIL/uL (4.5-6.0); RED CELL DISTRIBUTION WIDTH 16.6 % (11.5-15.0); WHITE BLOOD COUNT (AUTO) 8.9 K/uL (4.3-11.0)
[2024-11-16 07:56] LABS: MAGNESIUM 2.3 mg/dL (1.8-2.4); PHOSPHORUS 3.7 mg/dL (2.5-4.9); POTASSIUM 4.3 mmol/L (3.5-5.1)
[2024-11-16 08:00] VITALS: BP 158/85; TEMP 98.8; O2SAT 100
[2024-11-16 12:00] VITALS: BP 129/81; TEMP 98.1; O2SAT 97
[2024-11-16 16:00] VITALS: BP 113/86; TEMP 98.8; O2SAT 99
[2024-11-16 20:00] VITALS: BP 156/80; TEMP 99.3; O2SAT 95
[2024-11-17] VITALS: BP 132/74; TEMP 100; O2SAT 96
[2024-11-17 04:00] VITALS: BP 147/84; TEMP 98.2; O2SAT 95
[2024-11-17 07:33] LABS: BASOPHILS # (AUTO) 0.1 K/uL (0.0-0.2); BASOPHILS % (AUTO) 0.7 % (0.0-2.0); EOSINOPHILS # (AUTO) 0.4 K/uL (0.0-0.7); EOSINOPHILS % (AUTO) 4.6 % (0.0-6.0); HEMATOCRIT 27 % (39-51); HEMOGLOBIN 8.8 g/dL (13.5-17.5); LYMPHOCYTES % (AUTO) 10.7 % (20.0-44.0); MEAN CORPUSCULAR HEMOGLOBIN 27 PG (26.0-33.0); MEAN CORPUSCULAR HGB CONC 33 g/dl (31.0-36.0); MEAN CORPUSCULAR VOLUME 84 fL (80-96); MONOCYTES # (AUTO) 0.8 K/uL (0.1-1.30); MONOCYTES % (AUTO) 8.3 % (2.0-12.0); NEUTROPHILS # (AUTO) 7.1 K/uL (1.8-8.9); NEUTROPHILS % (AUTO) 75.7 % (43.0-81.0); PLATELET COUNT (AUTO) 435 K/uL (150-450); RED CELL DISTRIBUTION WIDTH 16.4 % (11.5-15.0); WHITE BLOOD COUNT (AUTO) 9.3 K/uL (4.3-11.0)
[2024-11-17 08:00] VITALS: BP 135/78; TEMP 98.6; O2SAT 94
[2024-11-17 08:38] LABS: CALCIUM, SERUM 9.5 mg/dL (8.5-10.1); MAGNESIUM 2.3 mg/dL (1.8-2.4); PHOSPHORUS 4.4 mg/dL (2.5-4.9); POTASSIUM 4.2 mmol/L (3.5-5.1)
[2024-11-17] MEDS ORDERED: NUT.237L45 NG (10:38)
[2024-11-17] MEDS ORDERED: Quetiapine Fumarate PO ×2 (10:38)
[2024-11-17 12:00] VITALS: BP 109/56; TEMP 99; O2SAT 94
[2024-11-17 16:00] VITALS: BP 114/54; TEMP 100.6; O2SAT 94
[2024-11-17 20:00] VITALS: BP 147/84; TEMP 99.5; O2SAT 100
[2024-11-18] VITALS: BP 102/65; TEMP 98.8; O2SAT 99
[2024-11-18 04:00] VITALS: BP 120/55; TEMP 99.1; O2SAT 99
[2024-11-18 08:00] VITALS: BP 133/79; TEMP 98.8; O2SAT 100
[2024-11-18 12:00] VITALS: BP 120/65; TEMP 98.2; O2SAT 98
[2024-11-18 16:00] VITALS: BP 151/84; TEMP 98; O2SAT 98
[2024-11-18 20:00] VITALS: BP 121/53; TEMP 99.3; O2SAT 100
[2024-11-19] VITALS: BP 142/76; TEMP 98.6; O2SAT 99
[2024-11-19 04:00] VITALS: BP 146/71; TEMP 99.1; O2SAT 98
[2024-11-19 07:42] LABS: CALCIUM, SERUM 9.1 mg/dL (8.5-10.1); POTASSIUM 4.3 mmol/L (3.5-5.1)
[2024-11-19 08:00] VITALS: BP 136/89; TEMP 98.4; O2SAT 99
[2024-11-19 09:49] LABS: BASOPHILS # (AUTO) 0.1 K/uL (0.0-0.2); BASOPHILS % (AUTO) 0.9 % (0.0-2.0); EOSINOPHILS # (AUTO) 0.2 K/uL (0.0-0.7); EOSINOPHILS % (AUTO) 2.1 % (0.0-6.0); HEMATOCRIT 27 % (39-51); HEMOGLOBIN 8.4 g/dL (13.5-17.5); LYMPHOCYTES # (AUTO) 1.1 K/uL (0.8-4.8); LYMPHOCYTES % (AUTO) 9.9 % (20.0-44.0); MEAN CORPUSCULAR HEMOGLOBIN 26 PG (26.0-33.0); MEAN CORPUSCULAR HGB CONC 31 g/dl (31.0-36.0); MEAN CORPUSCULAR VOLUME 85 fL (80-96); MONOCYTES # (AUTO) 1.1 K/uL (0.1-1.30); MONOCYTES % (AUTO) 9.7 % (2.0-12.0); NEUTROPHILS # (AUTO) 8.4 K/uL (1.8-8.9); NEUTROPHILS % (AUTO) 77.4 % (43.0-81.0); PLATELET COUNT (AUTO) 445 K/uL (150-450); RED BLOOD CELL COUNT(AUTO) 3.19 MIL/uL (4.5-6.0); RED CELL DISTRIBUTION WIDTH 16.6 % (11.5-15.0); WHITE BLOOD COUNT (AUTO) 10.9 K/uL (4.3-11.0)
[2024-11-19 12:00] VITALS: BP 128/70; TEMP 98.6; O2SAT 100
[2024-11-19 16:00] VITALS: BP 132/75; TEMP 99; O2SAT 100
[2024-11-19 20:00] VITALS: BP 118/67; TEMP 99.1; O2SAT 100
[2024-11-20] VITALS: BP 109/55; TEMP 98.2; O2SAT 100
[2024-11-20 04:00] VITALS: BP 116/68; TEMP 99; O2SAT 100
[2024-11-20 07:04] LABS: BASOPHILS # (AUTO) 0.1 K/uL (0.0-0.2); BASOPHILS % (AUTO) 0.7 % (0.0-2.0); EOSINOPHILS # (AUTO) 0.4 K/uL (0.0-0.7); EOSINOPHILS % (AUTO) 3.8 % (0.0-6.0); HEMATOCRIT 27 % (39-51); HEMOGLOBIN 8.6 g/dL (13.5-17.5); LYMPHOCYTES % (AUTO) 9.5 % (20.0-44.0); MEAN CORPUSCULAR HEMOGLOBIN 27 PG (26.0-33.0); MEAN CORPUSCULAR HGB CONC 33 g/dl (31.0-36.0); MEAN CORPUSCULAR VOLUME 84 fL (80-96); MONOCYTES # (AUTO) 0.8 K/uL (0.1-1.30); MONOCYTES % (AUTO) 7.6 % (2.0-12.0); NEUTROPHILS # (AUTO) 8.3 K/uL (1.8-8.9); NEUTROPHILS % (AUTO) 78.4 % (43.0-81.0); PLATELET COUNT (AUTO) 433 K/uL (150-450); RED BLOOD CELL COUNT(AUTO) 3.16 MIL/uL (4.5-6.0); RED CELL DISTRIBUTION WIDTH 17.1 % (11.5-15.0); WHITE BLOOD COUNT (AUTO) 10.5 K/uL (4.3-11.0)
[2024-11-20 07:25] LABS: CALCIUM, SERUM 8.6 mg/dL (8.5-10.1); CREATININE 1.1 mg/dL (0.6-1.3); MAGNESIUM 2.2 mg/dL (1.8-2.4); PHOSPHORUS 3.9 mg/dL (2.5-4.9); POTASSIUM 4.2 mmol/L (3.5-5.1)
[2024-11-20 08:00] VITALS: BP 113/65; TEMP 97.9; O2SAT 100
[2024-11-20 12:00] VITALS: BP 102/65; TEMP 97.9; O2SAT 100
[2024-11-20 16:00] VITALS: BP 111/59; TEMP 98.6; O2SAT 100
[2024-11-20 20:00] VITALS: BP 111/51; TEMP 99; O2SAT 100
[2024-11-21] VITALS: BP 120/45; TEMP 98.4; O2SAT 100
[2024-11-21 04:00] VITALS: BP 124/68; TEMP 98.1; O2SAT 100
[2024-11-21] MEDS: QUETIAPINE FUMARATE 25 MG TABLET PO SCH (08:38)
[2024-11-21 09:01] VITALS: BP 111/59; TEMP 98.6; O2SAT 100
[2024-11-21 12:02] VITALS: BP 120/45; TEMP 98.4; O2SAT 100
[2024-11-21] MEDS: OLANZAPINE 10 MG VIAL IM PRN (13:48)
== END 2024-11-21 15:20 | DRG 4 ==
LOC: ER 21:14 → TRANSITION 10-23 03:07 → ICU 10-23 12:48 → TELE-TD 11-11 18:08 → TELE1 11-13 09:34
PROVIDERS: ATTEND Nurse Practitioner Acute Care
PROC: 5A1955Z Respiratory Ventilation, Greater than 96 Consecutive Hours (ICD-10-PCS; principal; 2024-10-23)
PROC: 0BH17EZ Insertion of Endotracheal Airway into Trachea, Via Natural or Artificial Opening (ICD-10-PCS; 2024-10-23)
PROC: 06HY33Z Insertion of Infusion Device into Lower Vein, Percutaneous Approach (ICD-10-PCS; 2024-10-23)
PROC: 0B113F4 Bypass Trachea to Cutaneous with Tracheostomy Device, Percutaneous Approach (ICD-10-PCS; 2024-11-06)
PROC: 0DH63UZ Insertion of Feeding Device into Stomach, Percutaneous Approach (ICD-10-PCS; 2024-11-08)
DX: A41.9 Sepsis, unspecified organism (principal); I50.33 Acute on chronic diastolic (congestive) heart failure; J15.69 Pneumonia due to other Gram-negative bacteria; N17.0 Acute kidney failure with tubular necrosis; J96.01 Acute respiratory failure with hypoxia; J96.02 Acute respiratory failure with hypercapnia; E43 Unspecified severe protein-calorie malnutrition; R65.21 Severe sepsis with septic shock; J44.0 Chronic obstructive pulmonary disease with (acute) lower respiratory infection; I13.0 Hypertensive heart and chronic kidney disease with heart failure and stage 1 through stage 4 chronic kidney disease, or unspecified chronic kidney disease; G93.40 Encephalopathy, unspecified; K56.7 Ileus, unspecified; F05 Delirium due to known physiological condition; N18.9 Chronic kidney disease, unspecified; D64.9 Anemia, unspecified; Z20.822 Contact with and (suspected) exposure to COVID-19; E86.0 Dehydration; E88.09 Other disorders of plasma-protein metabolism, not elsewhere classified; F20.9 Schizophrenia, unspecified; R13.10 Dysphagia, unspecified; Z87.01 Personal history of pneumonia (recurrent); E11.22 Type 2 diabetes mellitus with diabetic chronic kidney disease; Z79.4 Long term (current) use of insulin; Z85.810 Personal history of malignant neoplasm of tongue; Z71.6 Tobacco abuse counseling; F17.210 Nicotine dependence, cigarettes, uncomplicated; Z68.30 Body mass index [BMI] 30.0-30.9, adult; F01.50 Vascular dementia, unspecified severity, without behavioral disturbance, psychotic disturbance, mood disturbance, and anxiety; E87.6 Hypokalemia; K29.70 Gastritis, unspecified, without bleeding; F29 Unspecified psychosis not due to a substance or known physiological condition; I95.89 Other hypotension
CPT/HCPCS: 31623; 31720; 36415; 36600; 43246; 71045-TC; 71260-TC; 74018; 76770-TC; 80048-TC; 80053-TC; 80076-TC; 80202-TC; 81001; 82550-TC; 82553; 82803-TC; 82962-TC; 83605-TC; 83735-TC; 83880; 83970; 84100-TC; 84155; 84165; 84443-TC; 84478-TC; 85025-TC; 85610-TC; 85730-TC; 86480; 87040-TC; 87081-TC; 87086-TC; 94003-TC; 94760-TC; 94761-TC; 94762-TC; 94799-TC; 99082-TC; A4223; A4623; A4629; A7526; G0378; J0330; J0690; J1650; J1815; J1940; J2060; J2250; J2405; J2470; J2543; J2704; J2765; J3010; J3370; J3480; J3490; J7040; J7042; J7050; J7060; Q9963; Q9967